=== PATIENT | male | born 1985 | race Caucasian/White ===

== ENCOUNTER 2020-11-09 19:51 | Emergency (ER) | payer OTHER, SELFPAY ==
--- NOTE | ~2020-11-09 | XR_ITS ---
EXAMINATION: XR chest 2V DATE: 11/09/2020 20:21 INDICATION: Chest tightness TECHNIQUE: PA and lateral views of the chest were obtained. COMPARISON: Chest radiograph dated 11/04/2015 FINDINGS: The lungs remain clear with no focal airspace opacities, pulmonary edema, pleural effusion or pneumot horax. The cardiomediastinal silhouette is normal. Visualized bones and soft tissues are unremarkable . IMPRESSION: 1. Normal chest radiograph. Reviewed, dictated and finalized at location A. IMPRESSION: 1. Normal chest radiograph.
--- NOTE | 2020-11-09 20:02 | ECG_ITS ---
Measurements Intervals [place] Rate: 86 P: 51 MA: 152 QRS: 24 QRSD: 88 T: 25 QT: 344 QTc: 412 Interpretive Statements SINUS RHYTHM NORMAL ECG Electronically Signed On 11-09-2020 21:12:06 CDT by Oscar Simpson D.O.
[2020-11-09 20:03] VITALS: BP 150/95; PULSE 89; RESP 20; TEMP 37.1; O2SAT 98
[2020-11-09 20:16] LABS: Basophils Absolute Auto 0.1 K/mm3 (0.0-0.1); Basophils Percent Auto 0.5 % (0.2-1.2); Eosinophils Absolute Auto 0.1 K/mm3 (0-0.3); Hematocrit 44.6 % (42.0-52.0); Immature Granulocyte Absolute 0.04 K/mm3 (0.00-0.031); Immature Granulocyte Percent A 0.4 % (0-0.5); Lymphocytes Absolute Auto 2.07 K/mm3 (0.9-3.2); Lymphocytes Percent Auto 19.7 % (18.3-44.2); Mean Corpuscular HGB Conc 33.6 g/dl (32-36); Mean Corpuscular Volume 86.1 fl (80-100); Mean Platelet Volume 9.3 fl (7.4-10.4); Monocytes Absolute Auto 0.6 K/mm3 (0.1-0.6); Monocytes Percent Auto 5.9 % (2.6-8.5); Neutrophils Absolute Auto 7.6 K/mm3 (1.3-6.7); Neutrophils Percent Auto 72.5 % (45.5-73.1); Platelet Count Result 336 k/mm3 (150-375); Red Blood Count 5.18 M/mm3 (4.6-6.20); Red Cell Distribution Width 12.7 % (11.5-14.5); White Blood Count 10.5 K/mm3 (4.5-10.0)
[2020-11-09 20:27] LABS: Anion Gap 11 mmol/L (8-16); Blood Urea Nitrogen 10 mg/dL (9-20); Calcium 9.5 mg/dL (8.4-10.2); Carbon Dioxide 24 mmol/L (22-30); Chloride 103 mmol/L (98-107); Estimated CRCL calculation 117 ml/min; Estimated Glomerular Filt Rate > 60; Glucose 105 mg/dL (75-110); INR 0.9; Partial Thromboplastin Time 29.6 SECONDS (22.3-36.8); Potassium 3.5 mmol/L (3.4-5.0); Prothrombin Time 12.9 Seconds (11.1-14.7); Sodium 138 mmol/L (137-145)
[2020-11-09 20:39] LABS: Troponin I < 0.012 ng/mL (0.000-0.034)
--- NOTE | 2020-11-09 22:44 | ED.CHESTPAIN ---
HPI - Chest Pain General Chief Complaint: Chest Pain Stated Complaint: anxiety attack Time Seen by Provider: 11/09/20 22:17 Source: patient Mode of arrival: ambulatory Limitations: no limitations History of Present Illness HPI narrative: 13-grhh-akx-year-old with complaints of intermittent palpitation on and off for past 1 or [address] home started having fast heart rate associated with some chest discomfort. She states that it could be anxiety but however he wanted to get it checked out. Patient states that while he was in the waiting room he had the symptoms however by the time he came back to the ED room he is feeling much better. Patient states that he is to drink lots of Mountain Dew which she quit 2 days ago and been supplementing with water and had 8 cups of coffee this afternoon. He also states that he has some stress going on in life however which is nothing unusual for him. He denies any fever or chills. No history of cough. MD complaint: chest discomfort Timing of current episode: episodic Pain radiation: none Relieving factors: nothing Exacerbating factors: nothing Related Data Allergies Allergy/AdvReac Type Severity Reaction Status Date / Time No Known Allergies Allergy Verified 11/04/15 08:43 Review of Systems Review of Systems: All systems reviewed & are unremarkable except as noted in HPI and below Constitutional: Constitutional: Reports no additional constitutional complaints ENT: Reports system reviewed and no additional complaints, except as documented Cardiovascular: Cardiovascular: Reports as per HPI Respiratory: Respiratory: Reports no additional respiratory complaints Gastrointestinal: Gastrointestinal: Reports no additional gastrointestinal complaints Musculoskeletal: Musculoskeletal: Reports no additional musculoskeletal complaints Neurologic: Reports system reviewed and no additional complaints, except as documented PMFSH Social History Social History Gender identity (if verbalized by the patient): Male Exam Narrative: Exam Narrative: GENERAL: Well-appearing, well-nourished, and in no acute distress. HEAD: Normocephalic, atraumatic. EYES: PERRLA and EOMI.. NECK: Supple. CHEST: Clear to auscultation. No respiratory distress. HEART: Regular rate and rhythm. No murmur heard. Normal peripheral pulses. ABDOMEN: Soft, nontender, nondistended, normal active bowel sounds. EXTREMITIES: Normal range of motion. No edema. SKIN: Warm, dry, no rash. NEURO: No focal deficits. Alert and oriented x3. PSYCH: Normal mood and affect. Course Course Emergency Course: Patient resting comfortably. With a heart rate of 75. I have reviewed his lab work and EKG and chest x-ray findings. His symptoms more suggestive of anxiety however since these are ongoing I recommended him to follow-up with his primary doctor consider Holter. He does feel comfortable going home Vital Signs Vital signs: Vital Signs Temperature 37.1 C 11/09/20 20:03 Pulse Rate 89 11/09/20 20:03 Respiratory Rate 20 11/09/20 20:03 Blood Pressure 150/95 H 11/09/20 20:03 Pulse Oximetry 98 11/09/20 20:03 Temperature 37.1 C 11/09/20 20:03 Pulse Rate 89 11/09/20 20:03 Respiratory Rate 20 11/09/20 20:03 Blood Pressure 150/95 H 11/09/20 20:03 Pulse Oximetry 98 11/09/20 20:03 MDM - Chest Pain Differential Diagnosis Differential diagnosis: Likely atypical chest pain and other (Anxiety) Lab Data Result diagrams: 11/09/20 20:08 11/09/20 20:08 Labs: Lab Results 11/09/20 11/09/20 11/09/20 Range/Units 20:08 20:08 20:08 WBC 10.5 H (4.5-10.0) K/mm3 RBC 5.18 (4.6-6.20) M/mm3 Hgb 15.0 (14.0-18.0) g/dL Hct 44.6 (42.0-52.0) % MCV 86.1 (80-100) fl MCH 29.0 (26-34) pg MCHC 33.6 (32-36) g/dl RDW 12.7 (11.5-14.5) % Plt Count 336 (150-375) k/mm3 MPV 9.3 (7.4-10.4)
[2020-11-09 23:06] VITALS: BP 101/56; PULSE 94; RESP 21; O2SAT 100
== END 2020-11-09 23:08 | disposition home or self-care (01) ==
PROVIDERS: Emergency Medicine; Emergency Provider Family Medicine
DX: R00.2 Palpitations (principal); R07.89 Other chest pain
CPT/HCPCS: 36415; 71046; 80048; 84484; 85025; 85610; 85730; 93005; 99284

== ENCOUNTER 2024-05-31 11:56 | Emergency (ER) | payer OTHER, SELFPAY ==
[2024-05-31 12:21] VITALS: BP 122/81; PULSE 65; RESP 18; TEMP 36.5; O2SAT 98
--- NOTE | 2024-05-31 13:00 | ED.URI ---
HPI - URI/Sore Throat General Chief Complaint: Upper Respiratory Infection Stated Complaint: Cough, Congestion Time Seen by Provider: 05/31/24 13:00 Source: patient, RN notes reviewed and old records reviewed Mode of arrival: ambulatory Limitations: no limitations History of Present Illness HPI Narrative: 38-year-old male presents to the [facility] with complaints of scratchy throat, headache, congestion for 3 days. Patient states his daughter tested positive for strep. Onset (ago): day(s) (3) Related Data Home Medications ?Medication ?Instructions ?Recorded ?Confirmed ?Last Taken ?Type No Home Medications 05/31/24 05/31/24 Unknown History Allergies Allergy/AdvReac Type Severity Reaction Status Date / Time No Known Allergies Allergy Verified 05/31/24 13:17 Review of Systems Review of Systems: All systems reviewed & are unremarkable except as noted in HPI and below Constitutional: Constitutional: Reports no additional constitutional complaints ENT: Reports as per HPI and Reports sore throat Cardiovascular: Cardiovascular: Reports no additional cardiovascular complaints, Denies chest pain and Denies dyspnea Respiratory: Respiratory: Reports as per HPI, Reports chest congestion, Reports cough and Denies dyspnea Musculoskeletal: Musculoskeletal: Reports no additional musculoskeletal complaints Integumentary/Breasts: Skin/Breast: Reports system reviewed and no additional complaints, except as docu PMFSH Social History Social History Gender identity (if verbalized by the patient): Male Comments At the time of my signature, I reviewed and agree with the nursing past medical, surgical, social, and family history. There is no relevant family history pertinent to the patient complaint. Exam Const: General: cooperative, healthy appearing, comfortable, no acute distress, well developed, alert and well nourished Nutritional Appearance: well nourished Orientation/consciousness: patient oriented x3 Limitations: no limitations HENMT: Head: normal to inspection Ears: hearing grossly normal bilaterally, external ears normal, TM's normal bilaterally, EAC's normal, mastoids normal and no periauricular adenopathy Face/Nose/Sinus: normal facial exam and face symmetric Face and sinus: normal facial exam and face symmetric Mouth: Yes Normal oral and palatal mucosa present, Yes lip normal, Yes tongue normal and Yes moist mucous membranes Throat: posterior oropharynx normal, uvula midline, postnasal drainage and no uvular edema Eyes: General: appearance normal, both eyes and all related structures Neck: Neck: normal visual inspection, full ROM, no lymphadenopathy and no meningeal signs Chest: Chest palpation & inspection: normal inspection of the chest Resp: Effort & Inspection: normal respiratory effort and able to speak in complete sentences Auscultation: clear to auscultation bilaterally, no crackles, no rales, no rhonchi and no wheezes Cardio: Rate: regular rate Skin: General skin exam: normal color and no rashes or lesions noted Neuro: General: patient oriented x3, gait normal, moves all extremities and no meningeal signs Cognition (Neuro): normal cognition Speech: normal speech Gait exam (Neuro): Normal gait present Extrem: General: normal to inspection, full ROM, capillary refill normal and normal gait Psych: Appearance: grossly normal and well kempt Mental Status: mental status grossly normal Speech and movement: Normal speech and movement present and Clear speech present Affect: normal affect Attitude: cooperative Course Course Level of Care: Express Care Visit Vital Signs Vital signs: Vital Signs Temperature 97.7 F 05/31/24 12:21 Pulse Rate 65 05/31/24 12:21 Respiratory Rate 18 05/31/24 12:21 Blood Pressure 122/81 05/31/24 12:21 Pulse Oximetry 98 05/31/24 12:21 Oxygen Delivery Room Air 05/31/24 12:21 Temperature 97.7 F 05/31/24 12:21 Pulse Rate 65 05/31/24 12:21 Respiratory Rate 18 05/31/24 12:21 Blood Pressure 122/81 05/31/24 12:21 Pulse Oximetry 98 05/31/24 12:21 Oxygen Delivery Room Air 05/31/24 12:21 Reviewed MDM - URI/Sore Throat MDM Narrative Medical decision making narrative: Patient sitting comfortably in exam room. Nontoxic stable. Patient presents with concerns for strep. Patient strep test negative. No acute findings other than postnasal drainage noted exam. Patient is appropriate for outpatient treatment and follow-up Discharge instructions reviewed with patient, as well as provided in writing per nursing staff. The instructions also include specific and strict return/GO TO THE ER as well as f/u information. All questions have been answered, and the patient deny any further questions with discharge and discharge plan. Some parts of this dictation were generated by voice recognition software and may contain typographical and/or grammatical inaccuracies. Differential Diagnosis Differential diagnosis: Likely upper respiratory infection, otitis media, sinusitis, viral infection and pharyngitis Lab Data Labs: Lab Results 05/31/24 Range/Units 13:25 POC Grp A Strep Screen Negative (Negative) Reviewed Critical Care Time Critical Care Time Critical Care Time: No Discharge Plan Discharge Clinical Impression: Post-nasal drainage Upper respiratory infection Qualifiers: URI type: unspecified viral URI Qualified Code(s): J06.9 - Acute upper respiratory infection, unspecified Patient Disposition: Home, Self-Care Condition: Stable Instructions: Antibiotic Form, Upper Respiratory Infection (DC), Postnasal Drip (DC) Additional Instructions: Your rapid strep swab was negative today at [facility]. A throat culture will be sent to the laboratory for further testing. If the test is positive, you will receive a phone call within 48 hours and an appropriate antibiotic will be initiated at that time. Your symptoms are likely due to a viral illness, which is not treated with antibiotics. Typically viral infections last 7-10 days, can linger for couple of weeks. It is very important to treat your symptoms. Drink plenty of water, Gatorade, Pedialyte, ice pops or Jell-O. -Alternate Tylenol and Motrin per package directions for fever or pain. You can alternate every 4 hours -Antihistamine medication such as Benadryl at night and Zyrtec/Claritin/Brandy during the day can help improve symptoms. -doing daily nasal irrigations can help relieve pressure your sinuses. Things like a Neti pot -Use Flonase twice a day for 5 days then daily to help reduce the inflammation and dry up your sinuses. -You can also use Mucinex. Be sure to drink plenty of water with this medication at least 8 ounces with every dose and it is important to drink 8 to 10 glasses of water per day. Water is a natural decongestant -Eat and drink things that are easy to swallow, like tea or soup, or popsicles. -Oral rinses such as: Salt water gargles and/or may use topical anesthetic (eg. Chloraseptic spray) or lozenges to relieve dryness or throat pain). -Frequent hand washing or hand check processing clerk is one of the best ways to prevent spread of infection. -Using a vaporizer or humidifier at night will also help thin secretions and help with coughing up phlegm. -Follow up with primary care provider in 7-10 days if condition is not improving - For new or worsening symptoms go directly to the nearest ER Patient Language: Russian Prescriptions: No Action No Home Medications Follow-up/Referrals: UNKNOWN,DOCTOR [Primary Care Provider] - Stand Alone Forms: Work/School Release IP Time of Disposition: 13:26
[2024-05-31 13:27] LABS: EDSTREPNEGPOS1 Negative (Negative)
== END 2024-05-31 13:35 | disposition home or self-care (01) ==
PROVIDERS: Emergency Provider Nurse Practitioner
DX: R09.82 Postnasal drip (principal); J06.9 Acute upper respiratory infection, unspecified
CPT/HCPCS: 87081; 87880; 99213; G0463

== ENCOUNTER 2024-11-11 17:13 | Emergency (ER) | payer BC, SELFPAY ==
[2024-11-11] VITALS (7 sets, daily range): BP systolic 124–143; BP diastolic 89–98; PULSE 88–97; RESP 16–26; TEMP 36.6; O2SAT 96–98
--- NOTE | ~2024-11-11 | CT_ITS ---
CTA brain carotid Ordering provider: Giacomo Cavazos MD History: . dizzy, floaters . Comparison: November 04, 2015 Technique: CT angiogram head and neck was performed following timed intravenous injection of contrast . Thin slice axial images and reformatted coronal images were obtained. Three dimensional reformatted images of the brain were also obtained using a [employer] workstation. Radiation reduction technique ut ilized. The dose-length product was 1863.08 mGy-cm. 100 mL Omnipaque 350 was given IV. FINDINGS: HEAD: --ANTERIOR AND MIDDLE CEREBRAL ARTERIES AND BRANCHES: Normal caliber and contour. --INTERNAL CAROTID ARTERIES: Normal caliber and contour. --BASILAR ARTERY AND BRANCHES: Normal caliber and contour. No atheromatous disease. --POSTERIOR CEREBRAL ARTERIES: Normal caliber and contour --POSTERIOR COMMUNICATING ARTERIES: Normal --ANEURYSM: None visualized. --BRAIN: Normal. --BONES AND SUPERFICIAL SOFT TISSUES: Normal. --PARANASAL SINUSES AND MASTOIDS: Well aerated. NECK: --RIGHT CERVICAL CAROTID SYSTEM: Normal caliber and contour. Percent stenosis per NASCET criteria is 0%. No carotid dissection. Otherwise, no significant atheromatous disease or stenosis of the cervical carotid system. --LEFT CERVICAL CAROTID SYSTEM: Normal caliber and contour. Percent stenosis per NASCET criteria is 0%. No carotid dissection. Otherwise, no significant atheromatous disease or stenosis of the cervical carotid system. --VERTEBRAL ARTERIES: Direct origin of the left from the aorta. Otherwise, Normal caliber and contour . --VISUALIZED AORTIC ARCH AND BRANCHING VESSELS: Normal caliber and contour. No significant atheromato us disease. --SOFT TISSUES: Normal. --CERVICAL SPINE: Normal. IMPRESSION: 1. Normal CTA head and neck. Percent stenosis per NASCET criteria is 0%. Reviewed, dictated and finalized at location A.
--- NOTE | ~2024-11-11 | XR_ITS ---
EXAMINATION: XR chest 2V Exam Date/Time: 11/11/2024 17:55 CDT HISTORY: chest pain Comparison: 11/09/2020. RESULT: Lines, tubes, and devices: None. Lungs and pleura: No focal consolidation, pleural effusion, or pneumothorax. Low lung volumes with c rowding. Cardiomediastinal silhouette: Stable. Other: No acute osseous or upper abdominal finding. IMPRESSION: No acute cardiopulmonary process. Reviewed, dictated and finalized at location K.
--- OUTSIDE RECORDS SUMMARY | 2024-11-11 17:15 | XMS_ITS | Referral Summary ---
Author Organization [facility] Address [address] [place] [id number] Care Team Providers Care Round Cutter Operator Name Role Phone Dayan Ordaz NP Primary Care Provider [phone] Tori Sweet STEAM GENERATING POWERPLANT MECHANIC Unavailable [phone] Allergies No known active allergies Medications clindamycin (CLEOCIN T) 1 % lotion 03/15/2021 Active ketoconazole (NIZORAL) 2 % shampoo 03/15/2021 Active Lialda 1.2 gram EC tablet 05/30/2021 Active budesonide EC (ENTOCORT EC) 3 mg 24 hr capsule Take 3 capsules (9 mg total) by mouth every morning for 14 days, THEN 2 capsules (6 mg total) every morning for 14 days, THEN 1 capsule (3 mg total) every morning for 14 days. 84 capsule 07/22/2021 Active Active Problems Problem Noted Date Diagnosed Date Ileitis, 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 Hx of BRBPR 2 years ago s/p colonoscopy which only revealed internal hemorrhoids. Asymptomatic otherwise, and incidentally noted to have TI thickening on CT 12/2020 which was done for testicular pain to rule out underlying mass. Therefore saw [facility] GI physician and underwent C-scope 03/17/2021 TI was intubated for 5 cm and terminal ileitis with ulcerations c/w CD seen and biopsied, rest of colon normal not biopsied, mild hemorrhoids. Path with severe active ileitis with erosion, no comment on chronicity. Started on Lialda 2.4 gm daily. Notably, was taking about 3 gm of Ibuprofen daily for years for back pain. He has stopped that since being told he may have Crohn's disease after the colonoscopy. About a week ago he developed transient R sided pablo-umbilical pain that resolved spontaneously, CT 06/07/2021 with thickening and edema of the terminal ileum seen suggesting inflammatory bowel disease such as Crohn's disease. Appearance is similar in comparison to CT-abdomen/pelvis of 12/25/2020. CBC/CMP/CRP 06/2021 normal. -ve ANCA. Based on above, he likely has mildly active terminal ileal Crohn's disease given persistent TI thickening on recent CT despite stopping NSAIDs. Assessment & Plan (06/15/2021 1:23 PM ARCHITECTURAL ENGINEER): - Labs today including CBC, CMP, CRP, ESR, iron studies, vitamin D/B12 and pre-biologic labs - Stop 5-ASA - Continue to avoid NSAIDs completely - Will schedule MRE, and consider starting Budesonide (Entocort) 9 mg daily based on results, with follow up ileocolonoscopy + biopsies in a few months - RTC in 3 months Social History Tobacco Use Types Packs/Day Years Used Date Smoking Tobacco: Former Cigarettes Q uit: 06/15/2018 Smokeless Tobacco: Never Personal Safety Answer Date Recorded Getting School Help Needed Not on file 08/05 Sex and Gender Information Value Date Recorded Sex Assigned at Not on file Legal Sex Male 1:57 PM CDT Gender Identity Male 06/15/2021 7:44 AM ARCHITECTURAL ENGINEER Sexual Orientation Straight 06/15/2021 7: 44 AM ARCHITECTURAL ENGINEER Last Filed Vital Signs Vital Sign Reading Time Taken Comments Blood Pressure 135/85 06/15/2021 9:44 AM ARCHITECTURAL ENGINEER Pulse 79 06/15/2021 9:44 AM ARCHITECTURAL ENGINEER Temperature 36.7 C (98.1 F) 06/15/2021 9:44 AM ARCHITECTURAL ENGINEER Respiratory Rate - - Oxygen Saturation - - Inhaled Oxygen Concentration - - Weight 93.1 kg (205 lb 3.2 oz) 06/15/2021 9:44 A M ARCHITECTURAL ENGINEER Height 175.3 cm (5' 9) 06/15/2021 9:44 AM ARCHITECTURAL ENGINEER Body Mass Index 30.3 06/15/2021 9:44 AM ARCHITECTURAL ENGINEER Plan of Treatment Not on file Insurance BLUE ACC CHOICE OOS Care Teams Round Cutter Operator Relationship Specialty [place] [address] [place] [address] PCP - General Nurse Practitioner 03/29/21 [place] [address] [address], [address] [address] Family Medicine 09/30/24
--- OUTSIDE RECORDS SUMMARY | 2024-11-11 17:15 | XMS_ITS | Clinical Summary ---
Author Organization [facility] Address [address] [place] [address] Care Team Providers Care Collateral Clerk Name Role Phone Dayan Ordaz NP Primary Care Provider [phone] Tori Sweet APPLICATIONS SUPPORT ENGINEER Unavailable [phone] Allergies No known active allergies Medications clindamycin [...] to rule out underlying mass. Therefore saw [facility] GI physician and underwent C-scope 03/17/2021 [...] NSAIDs. Assessment & Plan (06/15/2021 1:23 PM ANGLE BENDER): - Labs today including CBC, CMP, CRP, ESR, iron studies, vitamin D/B12 and pre-biologic labs - Stop 5-ASA - Continue to avoid NSAIDs completely - Will schedule MRE, and consider starting Budesonide (Entocort) 9 mg daily based on results, with follow up ileocolonoscopy + biopsies in a few months - RTC in 3 months Family History Medical History Relation Name Comments Colon cancer Father Ulcerative colitis Father Relation Name Status Comments Father Social History Tobacco Use Types Packs/Day Years Used Date Smoking Tobacco: Former Cigarettes Q uit: 06/15/2018 Smokeless Tobacco: Never Personal Safety Answer Date Recorded Getting School Help Needed Not on file 08/05 Sex and Gender Information Value Date Recorded Sex Assigned at Not on file Legal Sex Male 1:57 PM CDT Gender Identity Male 06/15/2021 7:44 AM ANGLE BENDER Sexual Orientation Straight 06/15/2021 7: 44 AM ANGLE BENDER Obstetrics History Last Filed Vital Signs Vital Sign Reading Time Taken Comments Blood Pressure 135/85 06/15/2021 9:44 AM ANGLE BENDER Pulse 79 06/15/2021 9:44 AM ANGLE BENDER Temperature 36.7 C (98.1 F) 06/15/2021 9:44 AM ANGLE BENDER Respiratory Rate - - Oxygen Saturation - - Inhaled Oxygen Concentration - - Weight 93.1 kg (205 lb 3.2 oz) 06/15/2021 9:44 A M ANGLE BENDER Height 175.3 cm (5' 9) 06/15/2021 9:44 AM ANGLE BENDER Body Mass Index 30.3 06/15/2021 9:44 AM ANGLE BENDER Plan of Treatment Not on file Insurance BLUE ACC CHOICE OOS Care Teams Collateral Clerk Relationship Specialty [place] [address] [place] [address] PCP - General Nurse Practitioner 03/29/21 [place] [address] [address], [address] [address] Family Medicine 09/30/24
--- OUTSIDE RECORDS SUMMARY | 2024-11-11 17:15 | XMS_ITS | Continuity of Care Document ---
Author Organization [facility] Address [address] [facility] [address] [place] [address] Phone Care Team Providers Care Service Member Name Role Phone Watson OD, Mani Unavailable Unavailable Advance Directives Directive Yes / No Effective Date File Name No Information Encounters Encounter Description Practice Location Reason(s) For Visit Diagnoses Date Provider Providers Copied on Encounter [facility], [address], [place], [place], [id number], [place] tel:[phone] [facility] No Information 6-200 1 Watson OD Mani. [address] , [address], [place], [address], [place]. tel:[phone] Family History Family Member Type Diagnosis Age At Onset No Information Payers Payer name Insurance type Covered alliance party ID Authoriza tion(s) No Information Social History [...]
--- NOTE | 2024-11-11 17:31 | ECG_ITS ---
Test Date: 2024-11-11 17:52:08 Measurements Intervals [place] Rate: 84 P: 59 [place]: 151 QRS: 27 QRSD: 85 T: 38 QT: 340 QTc: 404 Interpretive Statements SINUS RHYTHM NORMAL ECG No previous ECG available for comparison Electronically Signed On 11-11-2024 18:43:42 CDT by Oscar Simpson D.O.
--- NOTE | 2024-11-11 17:53 | ED_ITS ---
HPI - Anxiety General Chief Complaint: Anxiety <Kenia Torres BARREL ASSEMBLER - Last Filed: 11/11/24 17:56> Stated Complaint: anxiety, head pressure <Kenia Torres BARREL ASSEMBLER - Last Filed: 11/11/24 17:56> Time Seen by Provider: 11/11/24 17:40 <Kenia Torres BARREL ASSEMBLER - Last Filed: 11/11/24 17:56> Focused HPI: Patient is a 39-year-old male who presents to the ER with multiple medical complaints. He reports he has a history of anxiety attacks and has been experiencing chest pain and left shoulder pain since this morning. Patient also endorses a headache around his frontal lobe and reports he went to his primary care provider on Monday, 3 days ago for evaluation. They sent him home with Flonase and advised him that if his symptoms continue he may need a CT scan of his head. Today patient endorses decreased p.o. intake, dizziness, fatigue, and weakness. He reports he was in bed all weekend. Patient reports he receives most medical care at [facility]. Denies any back pain, shortness or breath, or recent fevers. GENERAL: Well-appearing, well-nourished, and in no acute distress. HEAD: Normocephalic, atraumatic. CHEST: Clear to auscultation. ?No respiratory distress. HEART: Regular rate and rhythm.? NEURO: ?Alert and oriented x3. Patient screened in triage and initial orders placed.? ?Additional care and disposition to be based upon?diagnostic testing and treatment. <Kenia Torres BARREL ASSEMBLER - Last Filed: 11/11/24 17:56> Focused HPI: Patient is a 39-year-old male who presents to the ER with multiple medical complaints. He reports he has a history of anxiety attacks and has been experiencing chest pain and left shoulder pain since this morning. Patient also endorses a headache around his frontal lobe and reports he went to his primary care provider on Monday, 3 days ago for evaluation. They sent him home with Flonase and advised him that if his symptoms continue he may need a CTA scan of his head & neck. Today patient endorses decreased p.o. intake, dizziness, fatigue, and weakness. He reports he was in bed all weekend. Patient reports he receives most medical care at [facility]. Denies any back pain, shortness or breath, or recent fevers. GENERAL: Well-appearing, well-nourished, and in no acute distress. HEAD: Normocephalic, atraumatic. CHEST: Clear to auscultation. ?No respiratory distress. HEART: Regular rate and rhythm.? NEURO: ?Alert and oriented x3. Patient screened in triage and initial orders placed.? ?Additional care and disposition to be based upon?diagnostic testing and treatment. Agree with triage assessment. Patient does admit that he has been under lot of stress but denies any suicidal homicidal ideations. Admits that he does have a therapist that he follows up with regularly. <Giacomo Cavazos MD - Last Filed: 11/11/24 21:10> Related Data Home Medications: Home Medications ?Medication ?Instructions ?Recorded ?Confirmed ?Last Taken ?Type No Home Medications 05/31/24 05/31/24 Unknown History <Kenia Torres APRN - Last Filed: 11/11/24 17:56> Allergies/Adverse Reactions: Allergies Allergy/AdvReac Type Severity Reaction Status Date / Time No Known Allergies Allergy Verified 11/11/24 17:14 <Kenia Torres APRN - Last Filed: 11/11/24 17:56> Review of Systems 2 Review of Systems: All systems are reviewed and are negative unless stated otherwise in the HPI. <Giacomo Cavazos MD - Last Filed: 11/11/24 21:10> FOR[facility]LY [facility], [facility] Social History Social History: Social History Substance use type: does not use Gender identity (if verbalized by the patient): Male <Kenia Torres APRN - Last Filed: 11/11/24 17:56> Exam 2 Narrative: General: Alert, awake, afebrile, in no acute distress. HEENT: PERRL, no rhinorrhea, no post nasal drip, oropharynx clear. Neck: Trachea midline, no JVD, no lymphadenopathy. Cardiovascular: Regular rate and rhythm, no murmurs, rubs or gallops, no peripheral edema. Respiratory: Clear to auscultation bilaterally, no tachypnea, no wheezing, no rhonchi, no rubs, no respiratory distress. Abdomen: Soft, nontender, nondistended, no rebound, no guarding, no peritoneal signs. Musculoskeletal: No joint swelling or deformity, normal muscle tone. Skin: No rashes or petechia, no signs of infection. Psychiatric: Alert and oriented, normal behavior and judgment for situation. Neurological: Alert and oriented to person, place, and time. Follows all commands. No focal deficits, speech is clear and fluent. <Giacomo Cavazos MD - Last Filed: 11/11/24 21:10> Course Vital Signs Vital signs: Vital Signs Temperature 98 F 11/11/24 17:25 Pulse Rate 97 11/11/24 17:25 Respiratory Rate 18 11/11/24 17:25 Blood Pressure 136/89 11/11/24 17:25 Pulse Oximetry 98 11/11/24 17:25 Temperature 98 F 11/11/24 17:25 Pulse Rate 89 11/11/24 20:00 Respiratory Rate 16 11/11/24 20:00 Blood Pressure 124/94 H 11/11/24 20:00 Pulse Oximetry 96 11/11/24 20:00 <Kenia Torres APRN - Last Filed: 11/11/24 17:56> Vital Signs Temperature 98 F 11/11/24 17:25 Pulse Rate 97 11/11/24 17:25 Respiratory Rate 18 11/11/24 17:25 Blood Pressure 136/89 11/11/24 17:25 Pulse Oximetry 98 11/11/24 17:25 Temperature 98 F 11/11/24 17:25 Pulse Rate 89 11/11/24 20:00 Respiratory Rate 16 11/11/24 20:00 Blood Pressure 124/94 H 11/11/24 20:00 Pulse Oximetry 96 11/11/24 20:00 <Giacomo Cavazos MD - Last Filed: 11/11/24 21:10> MDM - Anxiety MDM Narrative Medical decision making narrative: The patient was evaluated by myself in the emergency department. History is obtained from patient who is an independent historian and physical exam was performed. External medical records were reviewed at this time. IV was established and pertinent tests were ordered. EKG was obtained which revealed sinus rhythm rate of 84 beats per min. No ST changes, T wave inversions or evidence of acute ischemia. EKG was independently interpreted by me and is currently pending official cardiology read. Laboratory results obtained revealing no acute process. Imaging studies obtained included CXR which was independently interpreted by me revealing no acute process, which is pending final radiology interpretation. CT angio head and neck was ordered at this time per patient's request and independently interpreted by me no acute process. Patient was provided with printout of his CT report. Differential diagnosis considerations include anxiety, depression, acute stress reaction, arrhythmia, near syncopal episode, peripheral vertigo. Comorbidities impacting this visit include none. I have evaluated and discussed social determinants of health with the patient that could potentially impact subsequent diagnosis and treatment plans. On repeat assessment of the patient, reevaluation revealed that the patient is doing well and is in no acute distress. Patient symptoms have improved since he arrived to our emergency department. Repeat vital signs were all reviewed and noted to be stable. Differential diagnosis and treatment plan were discussed with the patient at bedside. Patient agrees with discussion and after shared medical decision making agrees with discharge. All questions were answered to the patient's satisfaction. Patient will follow up with his PCP in 3-5 days. Patient was also provided with an ENT referral instructed to call to set up a follow-up appointment. Patient was provided with strict return precautions and instructed to return to the emergency department if any new or worsening symptoms develop. The patient was discharged in stable condition. <Giacomo Cavazos MD - Last Filed: 11/11/24 21:10> Lab Data Result diagrams: 11/11/24 17:47 11/11/24 17:47 <Kenia Torres APRN - Last Filed: 11/11/24 17:56> Labs: Lab Results 11/11/24 11/11/24 Range/Units 17:47 19:38 WBC 8.6 (4.5-10.0) K/mm3 RBC 5.23 (4.6-6.20) M/mm3 Hgb 14.8 (14.0-18.0) g/dL Hct 45.9 (42.0-52.0) % MCV 87.8 (80-100) fl MCH 28.3 (26-34) pg MCHC 32.2 (32-36) g/dl RDW 12.7 (11.5-14.5) % Plt Count 378 H (150-375) k/mm3 MPV 9.0 (7.4-10.4) fl Immature Gran % (Auto) 0.5 (0-0.5) % Neut % (Auto) 64.1 (45.5-73.1) % Lymph % (Auto) 26.4 (18.3-44.2) % [place] % (Auto) 7.3 (2.6-8.5) % Eos % (Auto) 1.0 (0-4.4) % Baso % (Auto) 0.7 (0.2-1.2) % Lymph # (Auto) 2.27 (0.9-3.2) K/mm3 [place] # (Auto) 0.6 (0.1-0.6) K/mm3 Eos # (Auto) 0.1 (0-0.3) K/mm3 Baso # (Auto) 0.1 (0.0-0.1) K/mm3 Abs Immat Gran (auto) 0.04 H (0.00-0.031) K/mm3 Absolute Neuts (auto) 5.5 (1.3-6.7) K/mm3 Absolute Nucleated RBC 0.000 (0.0-0.012) K/mm3 Nucleated RBC % 0.0 (0.0-0.2) % PT 13.4 (11.1-14.7) Seconds INR 1.0 APTT 29.7 (22.3-36.8) Seconds Sodium 138 (137-145) mmol/L Potassium 3.7 (3.4-5.0) mmol/L Chloride 104 (98-107) mmol/L Carbon Dioxide 25 (22-30) mmol/L Anion Gap 9 (4-12) mmol/L BUN 12 (9-20) mg/dL Creatinine 0.95 (0.7-1.3) mg/dL Estim Creat Clear Calc 107 ml/min Estimated GFR > 60 (59 - ) Glucose 88 (65-110) mg/dL Calcium 9.4 (8.4-10.2) mg/dL Total Bilirubin 0.4 (0.2-1.3) mg/dL AST 28 (17-59) U/L ALT 25 (6-50) U/L Alkaline Phosphatase 89 (38-126) U/L Troponin I < 0.012 (0.000-0.034) ng/mL Total Protein 7.8 (6.3-8.2) g/dL Albumin 4.6 (3.5-5.1) g/dL Lipase 183 (23-300) U/L Urine Color Yellow (Yellow) Urine Appearance Clear (Clear) Urine pH 6.5 (5.0-9.0) Ur Specific [place] 1.003 (1.001-1.035) Urine Protein Negative (Negative) mg/dL Urine Glucose (UA) Negative (Negative) mg/dL Urine Ketones Negative (Negative) mg/dL Ur Blood (Man) Negative (Negative) Urine Nitrate Negative (Negative) Urine Bilirubin Negative (Negative) Urine Urobilinogen 0.2 (<2.0) mg/dL Leukocyte Esterase Rfl Negative (Negative) AMISH/UL <Kenia Torres, BARREL ASSEMBLER - Last Filed: 11/11/24 17:56> Lab Results 11/11/24 11/11/24 Range/Units 17:47 19:38 WBC 8.6 (4.5-10.0) K/mm3 RBC 5.23 (4.6-6.20) M/mm3 Hgb 14.8 (14.0-18.0) g/dL Hct 45.9 (42.0-52.0) % MCV 87.8 (80-100) fl MCH 28.3 (26-34) pg MCHC 32.2 (32-36) g/dl RDW 12.7 (11.5-14.5) % Plt Count 378 H (150-375) k/mm3 MPV 9.0 (7.4-10.4) fl Immature Gran % (Auto) 0.5 (0-0.5) % Neut % (Auto) 64.1 (45.5-73.1) % Lymph % (Auto) 26.4 (18.3-44.2) % [place] % (Auto) 7.3 (2.6-8.5) % Eos % (Auto) 1.0 (0-4.4) % Baso % (Auto) 0.7 (0.2-1.2) % Lymph # (Auto) 2.27 (0.9-3.2) K/mm3 [place] # (Auto) 0.6 (0.1-0.6) K/mm3 Eos # (Auto) 0.1 (0-0.3) K/mm3 Baso # (Auto) 0.1 (0.0-0.1) K/mm3 Abs Immat Gran (auto) 0.04 H (0.00-0.031) K/mm3 Absolute Neuts (auto) 5.5 (1.3-6.7) K/mm3 Absolute Nucleated RBC 0.000 (0.0-0.012) K/mm3 Nucleated RBC % 0.0 (0.0-0.2) % PT 13.4 (11.1-14.7) Seconds INR 1.0 APTT 29.7 (22.3-36.8) Seconds Sodium 138 (137-145) mmol/L Potassium 3.7 (3.4-5.0) mmol/L Chloride 104 (98-107) mmol/L Carbon Dioxide 25 (22-30) mmol/L Anion Gap 9 (4-12) mmol/L BUN 12 (9-20) mg/dL Creatinine 0.95 (0.7-1.3) mg/dL Estim Creat Clear Calc 107 ml/min Estimated GFR > 60 (59 - ) Glucose 88 (65-110) mg/dL Calcium 9.4 (8.4-10.2) mg/dL Total Bilirubin 0.4 (0.2-1.3) mg/dL AST 28 (17-59) U/L ALT 25 (6-50) U/L Alkaline Phosphatase 89 (38-126) U/L Troponin I < 0.012 (0.000-0.034) ng/mL Total Protein 7.8 (6.3-8.2) g/dL Albumin 4.6 (3.5-5.1) g/dL Lipase 183 (23-300) U/L Urine Color Yellow (Yellow) Urine Appearance Clear (Clear) Urine pH 6.5 (5.0-9.0) Ur Specific [place] 1.003 (1.001-1.035) Urine Protein Negative (Negative) mg/dL Urine Glucose (UA) Negative (Negative) mg/dL Urine Ketones Negative (Negative) mg/dL Ur Blood (Man) Negative (Negative) Urine Nitrate Negative (Negative) Urine Bilirubin Negative (Negative) Urine Urobilinogen 0.2 (<2.0) mg/dL Leukocyte Esterase Rfl Negative (Negative) AMISH/UL <Giacomo Cavazos MD - Last Filed: 11/11/24 21:10> Discharge Plan Discharge Clinical Impression: Acute anxiety, Vertigo <Kenia Torres APRN - Last Filed: 11/11/24 17:56> Patient Disposition: Home <Kenia Torres APRN - Last Filed: 11/11/24 17:56> Condition: Improved <Kenia Torres APRN - Last Filed: 11/11/24 17:56> Instructions: Antibiotic Form, Depression (ED), Benign Paroxysmal Positional Vertigo (DC) <Kenia Torres APRN - Last Filed: 11/11/24 17:56> Additional Instructions: Please follow-up with your primary care physician within the next 3-5 days. You also provided with an ENT referral instructed to call to set up a follow-up appointment. Return to the ED if any new or worsening symptoms develop. <Kenia Torres APRN - Last Filed: 11/11/24 17:56> Patient Language: Somali <Kenia Torres APRN - Last Filed: 11/11/24 17:56> Prescriptions: No Action No Home Medications <Kenia Torres APRN - Last Filed: 11/11/24 17:56> Follow-up/Referrals: Kee,Tori Carroll APRN [Primary Care Provider] - 3 Days Teddy Patino MD [Physician] - 3 Days <Kenia Torres APRN - Last Filed: 11/11/24 17:56> Time of Disposition: 21:09 <Kenia Torres APRN - Last Filed: 11/11/24 17:56> 21:09 <Giacomo Cavazos MD - Last Filed: 11/11/24 21:10>
[2024-11-11 17:58] LABS: Basophils Absolute Auto 0.1 K/mm3 (0.0-0.1); Basophils Percent Auto 0.7 % (0.2-1.2); Eosinophils Absolute Auto 0.1 K/mm3 (0-0.3); Hematocrit 45.9 % (42.0-52.0); Hemoglobin 14.8 g/dL (14.0-18.0); Immature Granulocyte Absolute 0.04 K/mm3 (0.00-0.031); Immature Granulocyte Percent A 0.5 % (0-0.5); Lymphocytes Absolute Auto 2.27 K/mm3 (0.9-3.2); Lymphocytes Percent Auto 26.4 % (18.3-44.2); Mean Corpuscular HGB Conc 32.2 g/dl (32-36); Mean Corpuscular Hemoglobin 28.3 pg (26-34); Mean Corpuscular Volume 87.8 fl (80-100); Monocytes Absolute Auto 0.6 K/mm3 (0.1-0.6); Monocytes Percent Auto 7.3 % (2.6-8.5); Neutrophils Absolute Auto 5.5 K/mm3 (1.3-6.7); Neutrophils Percent Auto 64.1 % (45.5-73.1); Platelet Count Result 378 k/mm3 (150-375); Red Blood Count 5.23 M/mm3 (4.6-6.20); Red Cell Distribution Width 12.7 % (11.5-14.5); White Blood Count 8.6 K/mm3 (4.5-10.0)
[2024-11-11 18:10] LABS: Prothrombin Time 13.4 Seconds (11.1-14.7)
[2024-11-11 18:11] LABS: Partial Thromboplastin Time 29.7 Seconds (22.3-36.8)
[2024-11-11 18:12] LABS: Alanine Aminotransferase 25 U/L (6-50); Albumin Level 4.6 g/dL (3.5-5.1); Alkaline Phosphatase 89 U/L (38-126); Anion Gap 9 mmol/L (4-12); Aspartate Amino Transferase 28 U/L (17-59); Bilirubin,Total 0.4 mg/dL (0.2-1.3); Blood Urea Nitrogen 12 mg/dL (9-20); Calcium 9.4 mg/dL (8.4-10.2); Carbon Dioxide 25 mmol/L (22-30); Chloride 104 mmol/L (98-107); Estimated CRCL calculation 107 ml/min; Estimated Glomerular Filt Rate > 60; Glucose 88 mg/dL (65-110); Lipase 183 U/L (23-300); Potassium 3.7 mmol/L (3.4-5.0); Sodium 138 mmol/L (137-145); Total Protein 7.8 g/dL (6.3-8.2)
[2024-11-11 18:24] LABS: Troponin I < 0.012 ng/mL (0.000-0.034)
[2024-11-11] MEDS: ASPIRIN 81 MG CHEWABLE TABLET 324 MG PO (18:59)
--- OUTSIDE RECORDS SUMMARY | 2024-11-11 19:40 | XMS_ITS | Referral Summary ---
Author Organization [facility] Address [address] [place] [address] Care Team Providers Care Electronic Train Control Technician Name Role Phone Dayan Ordaz NP Primary Care Provider [phone] Tori Sweet CONCRETE LABORER Unavailable [phone] Allergies No known active allergies Medications clindamycin [...] to rule out underlying mass. Therefore saw [facility] GI physician and underwent C-scope 03/17/2021 TI [...] NSAIDs. Assessment & Plan (06/15/2021 1:23 PM THERAPIST PHYSICAL): - Labs today including CBC, CMP, CRP, [...] CDT Gender Identity Male 06/15/2021 7:44 AM THERAPIST PHYSICAL Sexual Orientation Straight 06/15/2021 7: 44 AM THERAPIST PHYSICAL Last Filed Vital Signs Vital Sign Reading Time Taken Comments Blood Pressure 135/85 06/15/2021 9:44 AM THERAPIST PHYSICAL Pulse 79 06/15/2021 9:44 AM THERAPIST PHYSICAL Temperature 36.7 C (98.1 F) 06/15/2021 9:44 AM THERAPIST PHYSICAL Respiratory Rate - - Oxygen Saturation - - Inhaled Oxygen Concentration - - Weight 93.1 kg (205 lb 3.2 oz) 06/15/2021 9:44 A M THERAPIST PHYSICAL Height 175.3 cm (5' 9) 06/15/2021 9:44 AM THERAPIST PHYSICAL Body Mass Index 30.3 06/15/2021 9:44 AM THERAPIST PHYSICAL Plan of Treatment Not on file Insurance BLUE ACC CHOICE OOS Member Subscriber Plan / Payer (Ef fective 2024-Present) Name:Guille Walllaura Langston III Member ID:[id number] Relation to Subscriber:Self Name:Saman Wall Kian LECHUGA Subscriber ID:[id number] Payer ID:[id number] (NAIC) Type:[facility] Address: [facility] [id number] [place] [address] Care Teams Electronic Train Control Technician Relationship Specialty [place] [address] [place] [address] PCP - General Nurse Practitioner 03/29/21 [place] [address] Sat[address] Orozco, [address] [address] Family Medicine 09/30/24
--- OUTSIDE RECORDS SUMMARY | 2024-11-11 19:40 | XMS_ITS | Continuity of Care Document ---
Author Organization [facility] Address [address] [facility] [address] [place] [address] Phone Care Team Providers Care First Aid Nurse Name Role Phone Watson OD, Mani Unavailable Unavailable Advance Directives Directive Yes / No Effective Date File Name No Information Encounters Encounter Description Practice Location Reason(s) For Visit Diagnoses Date Provider Providers Copied on Encounter [facility], [address], [place], [place], [id number], [place] tel:[phone] [facility] No Information 6-200 1 Watson OD Mani. [address] , [address], [place], [address], [place]. tel:[phone] Family History Family Member Type Diagnosis Age [...]
--- OUTSIDE RECORDS SUMMARY | 2024-11-11 19:40 | XMS_ITS | Clinical Summary ---
Author Organization [facility] Address [address] [place] [id number] Care Team Providers Care Hotel Associate Name Role Phone Dayan Ordaz NP Primary Care Provider [phone] Tori Sweet SNAKE CHARMER Unavailable [phone] Allergies No known active allergies Medications clindamycin [...] to rule out underlying mass. Therefore saw [facility] GI physician and underwent C-scope 03/17/2021 [...] NSAIDs. Assessment & Plan (06/15/2021 1:23 PM LANGUAGE SPECIALIST): - Labs today including CBC, CMP, CRP, [...] CDT Gender Identity Male 06/15/2021 7:44 AM LANGUAGE SPECIALIST Sexual Orientation Straight 06/15/2021 7: 44 AM LANGUAGE SPECIALIST Obstetrics History Last Filed Vital Signs Vital Sign Reading Time Taken Comments Blood Pressure 135/85 06/15/2021 9:44 AM LANGUAGE SPECIALIST Pulse 79 06/15/2021 9:44 AM LANGUAGE SPECIALIST Temperature 36.7 C (98.1 F) 06/15/2021 9:44 AM LANGUAGE SPECIALIST Respiratory Rate - - Oxygen Saturation - - Inhaled Oxygen Concentration - - Weight 93.1 kg (205 lb 3.2 oz) 06/15/2021 9:44 A M LANGUAGE SPECIALIST Height 175.3 cm (5' 9) 06/15/2021 9:44 AM LANGUAGE SPECIALIST Body Mass Index 30.3 06/15/2021 9:44 AM LANGUAGE SPECIALIST Plan of Treatment Not on file Insurance BLUE ACC CHOICE OOS Care Teams Hotel Associate Relationship Specialty [place] [address] [place] [address] PCP - General Nurse Practitioner 03/29/21 [place] [address] [address] Orozco, [address] [address] Family Medicine 09/30/24
[2024-11-11 20:03] LABS: Add Urine Microscopic? NO; Appearance Urine Clear (Clear); Bilirubin Urine Negative (Negative); Blood Urine Negative (Negative); Color Urine Yellow (Yellow); Glucose Urine UA Negative (Negative); Ketones Urine Negative (Negative); Leukocyte Esterase Ur Negative LEU/UL (Negative); Nitrate Urine Negative (Negative); Protein Urine Negative (Negative); Specific Grav Ur 1.003 (1.001-1.035); Urobilinogen Urine 0.2 mg/dL (<2.0); pH Urine 6.5 (5.0-9.0)
--- NOTE | 2024-11-11 20:47 | ECG_ITS ---
Test Date: 2024-11-11 20:53:17 Measurements Intervals [place]y Rate: 78 P: 52 MD: 149 QRS: 13 QRSD: 86 T: 31 QT: 350 QTc: 399 Interpretive Statements SINUS RHYTHM BASELINE ARTIFACT- I, AVL NORMAL ECG Compared to ECG 11/11/2024 17:52:08 No significant changes Electronically Signed On 11-12-2024 06:22:15 CDT by Oscar Simpson D.O.
--- NOTE | 2024-11-11 21:04 | PC.NURSE ---
MD Cavazos verbally states to cancel 3 hr troponin and EKG due to discharging pt at this time.
== END 2024-11-11 21:40 | disposition home or self-care (01) ==
PROVIDERS: Emergency Medicine; Emergency Provider Emergency Medicine; PCP Nurse Practitioner Family
DX: F41.9 Anxiety disorder, unspecified (principal); R42 Dizziness and giddiness
CPT/HCPCS: 36415; 70496; 70498; 71046; 80053; 81003; 83690; 84484; 85025; 85610; 85730; 93005; 99284; A9270; Q9967

== ENCOUNTER 2025-03-11 12:33 | Emergency (ER) | payer BC, SELFPAY ==
--- OUTSIDE RECORDS SUMMARY | 2000-06-30 10:00 | XMS_ITS | Continuity of Care Document ---
Author Organization [facility] Address [address] [facility] [address] [place] [address] Phone Care Team Providers Care Site Worker Name Role Phone Watson OD, Mani Unavailable Unavailable Advance Directives Directive Yes / No Effective Date File Name No Information Encounters Encounter Description Practice Location Reason(s) For Visit Diagnoses Date Provider Providers Copied on Encounter [facility], [address], [place], [place], [id number], [place] tel:[phone] [facility] No Information 6-200 1 Watson OD Mani. [address] , [address], [place], [address], [place]. tel:[phone] Family History Family Member Type Diagnosis Age At Onset No Information Payers Payer name Insurance type Covered republican ID Authoriza tion(s) No Information Social History Type Description Quantity Date Captured Comments Sex Male Smoking Status No Information Chief Complaint And Reason For Visit No Information Reason For Referral Reason For Referral No Information History Of Present Illness Encounter Date Complaint History Of Prese nt Illness No Information Functional Status Date Functional Assessmen t No Information Instructions Date Instruction Additional Infor mation No Information Assessments Type Assessment Date No Information Patient Care Teams Name Effective Dates (start - stop) Status Members No Information
--- NOTE | ~2025-03-11 | XR_ITS ---
EXAMINATION: XR chest 2V DATE: 03/11/2025 13:17 INDICATION: Chest pain TECHNIQUE: PA and lateral views of the chest were obtained. COMPARISON: Chest radiograph dated 11/21/2024 FINDINGS: Mild linear discoid atelectasis/scarring at the lateral left lower lung zone. No other airspace opacities, pulmonary edema, pleural effusion or pneumothorax. The cardiomediastinal silhouette is normal. Visualized bones and soft tissues are unremarkable. IMPRESSION: 1. Mild discoid atelectasis/scarring at the left lower lung zone. No other acute cardiopulmonary disease. Reviewed, dictated and finalized at location A. IMPRESSION: 1. Mild discoid atelectasis/scarring at the left lower lung zone. No other acut e cardiopulmonary disease.
--- NOTE | 2025-03-11 12:44 | ECG_ITS ---
Test Date: 2025-03-11 12:59:39 Measurements Intervals [place] Rate: 78 P: 52 [place]: 156 QRS: 16 QRSD: 88 T: 16 QT: 345 QTc: 393 Interpretive Statements SINUS RHYTHM NORMAL ECG Compared to ECG 11/11/2024 20:53:17 No significant changes Electronically Signed On 03-11-2025 13:14:13 CDT by Oscar Simpson D.O.
[2025-03-11 12:45] VITALS: BP 137/83; PULSE 86; RESP 14; TEMP 36.6; O2SAT 94
[2025-03-11 13:04] LABS: Hematocrit 46.3 % (42.0-52.0); Hemoglobin 14.9 g/dL (14.0-18.0); Immature Granulocyte Percent A 0.6 % (0-0.5); Lymphocytes Absolute Auto 2.42 K/mm3 (0.9-3.2); Mean Corpuscular HGB Conc 32.2 g/dl (32-36); Mean Corpuscular Hemoglobin 28.8 pg (26-34); Mean Corpuscular Volume 89.4 fl (80-100); Nucleated Red Blood Cells Absolute Auto 0.000 K/mm3 (0.0-0.012); Nucleated Red Blood Cells Perc 0.0 % (0.0-0.2); Platelet Count Result 349 k/mm3 (150-375); Red Blood Count 5.18 M/mm3 (4.6-6.20); White Blood Count 8.7 K/mm3 (4.5-10.0)
[2025-03-11] MEDS: ASPIRIN 81 MG CHEWABLE TABLET 324 MG PO (13:07)
[2025-03-11 13:17] LABS: INR 0.9; Prothrombin Time 12.2 Seconds (11.1-14.7)
--- OUTSIDE RECORDS SUMMARY | 2025-03-11 13:23 | XMS_ITS | Encounter Summary ---
Author Organization [facility] Address Critical access hospital[address] [place] [address] Care Team Providers Care Surgical Services Tech Name Role Phone Dayan Ordaz [facility] Primary Care Provider + Tori Sweet [facility] Primary Care Provider + Arsenio Nick MD Primary Care Provider [phone] Encounter Details Date Type Department Care Team (Late st Contact Info) Description 03/08/2021 Prep for Procedure [facility] [address] [place] [address] Chepe Do MD [address] [place] [address] [id number] Social History Tobacco Use Types Packs/Day Years Used Date Smoking Tobacco: Former Cigarettes 1.5 20 0 07/16/1998 - 07/16/2018 Smokeless Tobacco: Never Alcohol Use Standard Drinks/Week Comments Yes 0 (1 standard drink = 0.6 oz pur e alcohol) socially AUDIT-C Answer Date Recorded Frequency of Alcohol Consumption Never 09/21/2018 Average Number of Drinks Not on file 019 Frequency of Binge Drinking Not on file 09/03 PHQ-2 Answer Date Recorded PHQ-2 Score - If the patient scores above 3, please move on to questions 3-9 1 11/12/2020 Education Answer Date Recorded What is the highest level of school you have completed or the highest degree you have received? High school graduate 09/21/2018 Sex and Gender Information Value Date Recorded Sex Assigned at Male 09/21/2018 10:44 AM CDT Legal Sex Male 8:21 PM CDT Gender Identity Male 09/21/2018 10:44 AM CDT Sexual Orientation Straight 09/21/2018 10 :44 AM CDT COVID-19 Exposure Response Date Recorded In the last month, have you been in contact with someone who was confirmed or suspected to have Coronavirus / COVID-19? No / Unsure 02/26/2021 1:24 PM CDT documented as of this encounter Plan of Treatment Upcoming Encounters Date Type Department Care Team (Late st Contact Info) Description 04/15/2025 7:20 AM RED CROSS WORKER Office Visit [facility] Medical [facility] [address] [place] [address] [place] [address] [facility] [address] [place] [address] 05/05/2025 1:20 PM RED CROSS WORKER Office Visit [facility] [address] [facility], [address] [place] [phone] Blane Manuel MD [address] [place] [address] [place] [phone] documented as of this encounter Visit Diagnoses Diagnosis Preop testing- Primary Preoperative examination, unspecified documented in this encounter Additional Health Concerns Assessment Noted Time PHQ-9 Depression Total Score: 1 11/13/19 7:24 AM CDT documented as of this encounter Care Teams Surgical Services Tech Relationship Specialty Start Date End Date Dayan Ordaz FNP- PCP - General Nurse Practitioner Family 11/30/20 Tori Sweet [facility]- PCP - General Nurse Practitioner Family 03/24/2311/04 [place] [address] [address] PCP - General INTERNAL MEDICINE 12/02/24 documented as of this encounter
--- OUTSIDE RECORDS SUMMARY | 2025-03-11 13:23 | XMS_ITS | Clinical Summary ---
Author Organization [facility] Address [address] [place] [address] Care Team Providers Care Cycle Consultant Name Role Phone Arsenio Nick MD Primary Care Provider [phone] Allergies No known active allergies Medications fish oil (OMEGA-3 FATTY ACID) 1000 MG Cap capsule Take 1 capsule (1,000 mg total) by mouth daily. Active multi vitamin/minera ls (THERA-M ENHANCED) tablet Take 1 tablet by mouth daily. Active Garlic 1000 MG capsule Take 1,000 mg by mouth daily. Active meclizine (ANTIVERT) 12.5 MG tablet take 1 tablet by mouth three times daily as needed for dizziness 11/13/19 25 Active traZODone (DESYREL) 50 MG tabletIndicati ons:Anxiety associated with depression Take 1 tablet (50 mg total) by mouth nightly at bedtime. Start with 0.5 tab then 1 if needs to increase 30 tablet 2 01/15/20 25 025 Active Coenzyme Q10 10 MG capsule Take 10 mg by mouth daily. Active fluticasone propionate (FLONASE) 50 MCG/ACT nasal spray USE 2 SPRAY(S) IN EACH NOSTRIL TWICE DAILY FOR 3 DAYS THEN 2 ONCE DAILY 02/17/20 25 Active LYCOPENE OR Take by mouth Acti ve busPIRone (BUSPAR) 15 MG tabletIndicati ons:Anxiety Take 1 tablet by mouth twice daily 60 tablet 03/10/20 25 Active busPIRone (BUSPAR) 15 MG tabletIndicati ons:Anxiety Take 1 tablet (15 mg total) by mouth 2 (two) times daily. 60 tablet 01/11/20 25 025 Discontinued busPIRone (BUSPAR) 15 MG tabletIndicati ons:Anxiety TAKE 1 TABLET(15 MG) BY MOUTH TWICE DAILY 60 tablet 02/11/20 25 025 Discontinued busPIRone (BUSPAR) 15 MG tabletIndicati ons:Anxiety Take 1 tablet by mouth twice daily 60 tablet 02/13/20 25 025 Discontinued cephALEXin (KEFLEX) 500 MG capsuleIndicat ions:Wound, open, puncture Take 1 capsule (500 mg total) by mouth 2 (two) times daily for 10 days. 20 capsule 02/22/20 25 025 Active Problems Problem Noted Date Diagnosed Date Acute anxiety 02/21/2025 Vertigo 02/21/2025 Primary hypertension 01/14/2025 Assessment & Plan (01/14/2025 9:17 AM CDT): Currently on beets + garlic tablets. Recommend low-salt diet Tobacco dependence due to chewing tobacco 2024 Assessment & Plan (01/14/2025 9:17 AM CDT): 0.5 can/day- cutting down per the pt Anxiety associated with depression 01/14/2025 Assessment & Plan (01/14/2025 9:17 AM CDT): Has been use seen buspirone 10 mg in the morning and 15 mg in the evenings as needed and could not tolerate the sertraline prescribed before Still intermittent stress and anxiety and having issue with sleep To take buspirone 15 mg twice daily consistently and add 25 to 50 mg trazodone before bedtime as tolerable. Patient needs to adjust pressure in regards to CPAP as well Orders: traZODone (DESYREL) 50 MG tablet; Take 1 tablet (50 mg total) by mouth nightly at bedtime. Start with 0.5 tab then 1 if needs to increase Dyslipidemia 01/14/2025 Assessment & Plan (01/14/2025 9:17 AM CDT): Currently on fish oil caps + Co.Q 10 per the pt. Cut back on red meat products Elevated cortisol level 10/01/2024 Mixed hyperlipidemia 09/27/2024 Bilateral hearing loss, unspecified hearing loss type 09/27/2024 Terminal ileitis ([facility]) 06/15/2021 Overview (09/27/2024): Has FHx of UC in father, with colon CA. Hx of BRBPR 2 years ago s/p colonoscopy which only revealed internal hemorrhoids. Asymptomatic otherwise, and incidentally noted to have TI thickening on CT 12/2020 which was done for testicular pain to rule out underlying mass. Therefore saw [facility] GI physician and underwent C-scope 03/17/2021 [...] thickening on recent CT despite stopping NSAIDs. Crohn's disease involving terminal ileum (CMS/ [facility]) 05/24/2021 Overview (05/24/2021): Added automatically from request for surgery [id number] Assessment & Plan (01/14/2025 9:17 AM CDT): Not on Rx Awaiting FU colonoscopy Screening for colon cancer 03/03/2021 Overview (03/03/2021): Added automatically from request for surgery [id number] Family history of colon cancer 03/03/2021 Overview (03/03/2021): Added automatically from request for surgery [id number] SRINIVASAN (obstructive sleep apnea) 02/15/2021 Assessment & Plan (01/15/2025 3:26 PM CDT): Scheduled to see -appointment in May per the patient On ?autoPap 4-15 cm water Has a new machine > a month now BMI 31.0-31.9,adult 11/12/2020 Resolved Problems Problem Noted Date Diagnosed Date Resolved Date Overweight (BMI 25.0-29.9) 04/16/2021 0 09/28/2023 Ileitis 04/16/2021 09/28/[address] scan, colon 03/03/2021 04/2 10/2024 Overview (03/03/2021): Added automatically from request for surgery [id number] COVID-19 02/15/2021 09/28/2023 Midsternal chest pain 11/12/20202023 Snoring 11/12/2020 09/28/2023 Witnessed episode of apnea 11/12/2020 0 09/28/2023 Encounter for preventive health examination 02/22/2016 02/14/2020 Encounters Date Type Department Care Team Description 02/21/2025 10:40 AM CDT Office Visit [facility] Family & Internal Medicine [address] [address] Winnie Aldrich APRN Wound (Sore on L ankle, side of L foot is swollen ROM there is pain x 6 days) 02/21/2025 Travel 01/14/2025 8:20 AM CDT Office Visit [facility] Family & Internal Medicine [address] [address] Arsenio Nick MD New Patient (New patient establish care araceli pt) 01/14/2025 Travel 01/10/2025 Telephone [facility] Family & Internal Medicine [address] [address] Arsenio Nick MD Refill Request from Last 3 Months Immunizations Immunization Administration Dates Next Due COVID-19 Vaccine (Generic) 07/01/2021(De ferred: Patient Refused),11/12/2020(Deferred: Patient Refused) Dtp 02/13/1992, 0,02/21/1989,04/27/1987,01/23 Hepatitis B 09/05/1997,04/01/1997,02/25/1997 Hepatitis B Pediatric 09/05/1997,04/01/1997,02/04 Hib 02/13/1992,02/21/1989 Hib (Generic) 02/13/1992,02/21/1989 Influenza (Generic) 07/01/2021(Deferred: Patient Refused) MMR 02/13/1992,02/21/1989 Opv 02/13/1992,02/21/1989,04/27/1987 ,01/23/1987 Polio Opv (Generic) 02/13/1992,02/21/1989,1986,01/23/1987 Td 03/20/2003 Tdap (Adacel) 08/30/2020 Family History Medical History Relation Comments No Known Problems Brother Epilepsy Daughter Cancer Father colon Ulcerative Colitis Father No Known Problems Maternal Aunt Alcohol Abuse Maternal Grandfather Melanoma Maternal Grandmother Brain Aneurysm Maternal Uncle Stroke Maternal Uncle No Known Problems Mother No Known Problems Paternal Aunt Diabetes Paternal Grandfather amputation Paternal Grandfather Diabetes Paternal Grandmother No Known Problems Paternal Uncle No Known Problems Sister Relation Status Comments Brother Daughter Other Father Alive Maternal Aunt Maternal Grandfather Maternal Grandmother Alive Maternal Uncle Mother Alive Paternal Aunt Paternal Grandfather Paternal Grandmother Paternal Uncle Sister Social History Tobacco Use Types Packs/Day Years Used Date Smoking Tobacco: Former Cigarettes 1.5 20 0 07/16/1998 - 07/16/2018 Passive Smoke Exposure: Past Smokeless Tobacco: Current Chew Tobacco Cessation:Ready to Q uit: No; Counseling Given: Yes Comments:chews tobacco daily Alcohol Use Standard Drinks/Week Comments Yes 0 (1 standard drink = 0.6 oz pur e alcohol) 1-2 beers every 7 months AUDIT-C Answer Date Recorded Frequency of Alcohol Consumption Never 09/21/2018 Average Number of Drinks Not on file 019 Frequency of Binge Drinking Not on file 09/03 PHQ-2 Answer Date Recorded Patient Health Questionnaire-2 Score 0 09/27/2024 Education Answer Date Recorded What is the highest level of school you have completed or the highest degree you have received? High school graduate 09/21/2018 Sex and Gender Information Value Date Recorded Sex Assigned at Male 09/21/2018 10:44 AM CDT Legal Sex Male 8:21 PM CDT Gender Identity Male 09/21/2018 10:44 AM CDT Sexual Orientation Straight 09/21/2018 10 :44 AM CDT Last Filed Vital Signs Vital Sign Reading Time Taken Comments Blood Pressure 122/80 02/21/2025 10:20 AM CDT Pulse 64 02/21/2025 10:20 AM CDT Temperature 36.4 C (97.6 F) 02/21/2025 10:20 AM CDT Respiratory Rate 16 02/21/2025 10:2 0 AM CDT Oxygen Saturation 98% 02/21/2025 10: 20 AM CDT Inhaled Oxygen Concentration - - Weight 100.8 kg (222 lb 3.2 oz) 025 10:20 AM CDT Height 177.8 cm (5' 10) 02/21/2025 10: 20 AM CDT Body Mass Index 31.88 02/21/2025 10:20 AM CDT Plan of Treatment Upcoming Encounters Date Type Department Care Team (Late st Contact Info) Description 04/15/2025 7:20 AM DISCHARGE PLANNER Office Visit [facility] Family & Internal Medicine - [address] [address] [place] [address] [facility] [address] [place] [address] [id number] 05/05/2025 1:20 PM DISCHARGE PLANNER Office Visit [facility] Multispecialty Care - [address], [address] [place] [phone] Blane Manuel MD [address] [address] Health Maintenance Due Date Last Done Comments Hepatitis C 2004 Pneumococcal Vaccine: Pediatrics (0 to 5 Years) and At-Risk Patients (6 to 49 Years) (1 of 2 - PCV) 2005 HPV Vaccines (1 - 3-dose SCDM series) 2013 COVID-19 Vaccine (1 - season) 2025 Influenza Adult (#1) 2025 Annual Physical 09/27/2025 09/27/2024, 09/04, 04/16/2021 DTaP, Tdap and Td Vaccines (3 - Td or Tdap) 08/30/2030 08/30/2020, 03/20/2003, 02/13/1992, Additional history exists Hepatitis B Vaccines Completed 09/05/1997, 09/05/1997, 04/01/1997, Additional history exists PHQ-2 (Physician Reagan) Completed 09/27/2024 Meningococcal B Vaccine Aged Out No l onger eligible based on patient's age to complete this topic Meningococcal Vaccine Aged Out No ene ashly eligible based on patient's age to complete this topic RSV Immunizations Under 20 Months Aged Out No longer eligible based on patient's age to complete this topic Insurance [facility] Care Teams Cycle Consultant Relationship Specialty [place] [id number] [place] [address] PCP - General INTERNAL MEDICINE 12/02/24
--- OUTSIDE RECORDS SUMMARY | 2025-03-11 13:23 | XMS_ITS | Encounter Summary ---
Author Organization [facility] Address [facility] [place] [address] Care Team Providers Care Manager Shop Name Role Phone Kee Tori Dos Santos [facility] Primary Care Provider + Arsenio Nick MD Primary Care Provider [phone] Encounter Details Date Type Department Care Team (Late st Contact Info) Description 11/25/2024 MyChart Message Enc [facility] Family & Internal Medicine [facility] [address] [place] [address] [place] [address] [address] Scheduled appointment. Social History Tobacco Use Types Packs/Day Years Used Date Smoking Tobacco: Former Cigarettes 1.5 20 0 07/16/1998 - 07/16/2018 Smokeless Tobacco: Current Chew Comments:chews tobacco daily Alcohol Use Standard Drinks/Week [...] Orientation Straight 09/21/2018 10 :44 AM CDT documented as of this encounter Plan of Treatment Upcoming Encounters Date Type Department Care Team (Late st Contact Info) Description 04/15/2025 7:20 AM OVERHEAD DISTRIBUTION ENGINEER Office Visit [facility] Family & Internal Medicine - [place] [address] [place] [address] [place] [address] [facility] [address] [place] [id number] 05/05/2025 1:20 PM OVERHEAD DISTRIBUTION ENGINEER Office Visit [facility] Multispecialty Care - [facility] [address] [facility] [place] [address] Blane Manuel MD [address] [facility] [address] [place] [address] documented as of this encounter Visit Diagnoses Not on filedocumented in this encounter Additional Health Concerns Assessment Noted Time PHQ-9 Depression Total Score: 3 09/28/19 7:53 AM CDT documented as of this encounter Care Teams Manager Shop Relationship Specialty Start Date End Date Tori Sweet, FEEDER SWITCHBOARD OPERATOR- PCP - General Nurse Practitioner Family 03/24/2311/04 [place] [address] [facility] [address] [place] [address] PCP - General INTERNAL MEDICINE 12/02/24 documented as of this encounter
--- OUTSIDE RECORDS SUMMARY | 2025-03-11 13:23 | XMS_ITS | Clinical Summary ---
Author Organization [facility] Address [address] [place] [phone] Care Team Providers Care Casino Cashier Name Role Phone Tori Sweet Gaby PLUMBING WAREHOUSE HELPER Unavailable [phone] Arsenio Nick MD Primary Care Provider [phone] Allergies No known active allergies Medications clindamycin (CLEOCIN T) 1 % lotion 1 Active ketoconazole (NIZORAL) 2 % shampoo 1 Active Lialda 1.2 gram EC tablet 1 Active budesonide EC (ENTOCORT EC) 3 mg 24 hr capsule Take 3 capsules (9 mg total) by mouth every morning for 14 days, THEN 2 capsules (6 mg total) every morning for 14 days, THEN 1 capsule (3 mg total) every morning for 14 days. 84 capsule 2 Active Additional Information Patient not taking.Reported on 01/27/2025 meclizine (ANTIVERT) 12.5 mg tablet Take 1 tablet (12.5 mg total) by mouth 3 (three) times a day as needed for dizziness 5 Active hydrOXYzine (ATARAX) 25 mg tablet Take 1 tablet (25 mg total) by mouth 3 (three) times a day as needed Active busPIRone (BUSPAR) 15 mg tablet Take 1 tablet (15 mg total) by mouth 2 (two) times a day 5 Active coenzyme Q10 10 mg capsule Take 1 capsule (10 mg total) by mouth daily Active folic acid 20 mg capsule Take by mouth Activ e [id number] lic-vit K-lycop 400-20-300 mcg tablet Take by mouth Active omega-3 fatty acids-fish oil 300-1,000 mg capsule Take 2 capsules (2 g total) by mouth daily Active traZODone (DESYREL) 50 mg tablet Take 1 tablet (50 mg total) by mouth daily 04/14/20 25 Active Hospital, Clinic, or Other Facility Administered Medication Ordered Dose Route Frequency Start Date End Date Status perflutren protein-a (OPTISON) 3 mL in sodium chloride 0.9% 8 mL syringe 1 - 8 mL IV Once in imaging 01/27/2025 Active Active Problems Problem Noted Date Diagnosed Date Ileitis, 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 Hx of BRBPR 2 years ago s/p colonoscopy which only revealed internal hemorrhoids. Asymptomatic otherwise, and incidentally noted to have TI thickening on CT 12/2020 which was done for testicular pain to rule out underlying mass. Therefore saw [facility] and underwent C-scope 03/17/2021 TI [...] NSAIDs. Assessment & Plan (06/15/2021 1:23 PM DRAFTING SUPERVISOR): - Labs today including CBC, CMP, CRP, ESR, iron studies, vitamin D/B12 and pre-biologic labs - Stop 5-ASA - Continue to avoid NSAIDs completely - Will schedule MRE, and consider starting Budesonide (Entocort) 9 mg daily based on results, with follow up ileocolonoscopy + biopsies in a few months - RTC in 3 months Encounters Date Type Department Care Team Description 02/05/2025 9:15 AM CDT Ancillary Procedure [address] [place] [id number] Abnormal EKG 01/27/2025 3:15 PM CDT Office Visit [facility] Medicine Cardiology [address] [place] [address] Medical Office Building [address] [place] [address] Max Cannon MD PhD Abnormal EKG (Primary Dx) 01/27/2025 2:00 PM CDT Ancillary Procedure [address] [place] [address] Chest pain, unspecified type; Dizziness; Other fatigue from Last 3 Months Family History Medical History Relation Name Comments Colon cancer Father Ulcerative colitis Father Relation Name Status Comments Father Social History Tobacco Use Types Packs/Day Years Used Date Smoking Tobacco: Former Cigarettes Q uit: 06/15/2018 Smokeless Tobacco: Never Tobacco Cessation:Counseling Given: Not Answered Sex and Gender Information Value Date Recorded Sex Assigned at Not on file Legal Sex Male 1:57 PM CDT Gender Identity Male 06/15/2021 7:44 AM DRAFTING SUPERVISOR Sexual Orientation Straight 06/15/2021 7: 44 AM DRAFTING SUPERVISOR Obstetrics History Last Filed Vital Signs Vital Sign Reading Time Taken Comments Blood Pressure 130/82 01/27/2025 2:32 PM CDT Pulse 72 01/27/2025 2:32 PM CDT Temperature 36.7 C (98.1 F) 06/15/2021 9:44 AM DRAFTING SUPERVISOR Respiratory Rate - - Oxygen Saturation 96% 01/27/2025 2:32 PM CDT Inhaled Oxygen Concentration - - Weight 100.2 kg (221 lb) 01/27/2025 2:32 PM CDT Height 175.3 cm (5' 9) 01/27/2025 2:32 PM CDT Body Mass Index 32.64 01/27/2025 2:32 PM CDT Plan of Treatment Health Maintenance Due Date Last Done Comments Depression Screening 1985 Hepatitis C Screening 1985 Varicella Vaccines (1 of 2 - 13+ 2-dose series) 1999 Regular Well Visit/Exam 18-64 2004 HPV Vaccines (1 - 3-dose SCDM series) 2013 Influenza Vaccine (#1) 2025 DTaP/Tdap/Td Vaccine (7 - Td or Tdap) 08/30/2030 08/30/2020, 03/20/2003, 02/13/1992, Additional history exists Hepatitis B Screening Completed 09/05/1997 , 04/01/1997, 02/25/1997 Pneumococcal vaccine <65 Aged Out No longer eligible based on patient's age to complete this topic Procedures Procedure Name Priority Date/Time Associated Diagnosis Comments STRESS TEST ONLY TREADMILL Routine 02/05/2025 9:20 AM CDT Abnormal EKG TRANSTHORACIC ECHO (TTE) COMPLETE W DOPPLER/CF WO CONTRAST Routine 01/27/2025 2:06 PM CDT Chest pain, unspecified type Dizziness Other fatigue from Last 3 Months Results * Stress Treadmill Test (02/05/2025 9:20 AM CDT) Anatomical Region Laterality Modality Electrocardiogra phy 02/05/2025 9:15 AM CDT Narrative 02/05/2025 10:26 AM CDT [facility] Cardiac Diagnostic Lab [address], [address] [place] [address] EXERCISE STRESS Patient Name: GUILLE PADILLA J : 1985 (39y 6m) Sex: M Study Date: 02/05/2025 09:15:00 AM Ht(Inch): 69 Wt(Lb): 217 BSA: 2.19 Tech: Babs La RN, MSN Location: [facility] Order Provider: MAX CANNON Heart Rate: 63 BMI: 32.04 BP: 123/76 Ref Provider: MAX CANNON PROCEDURES: Stress Report: Cardiovascular Treadmill Stress Exam. Protocol: Bello. INDICATIONS: R94.31 Abnormal electrocardiogram (ECG) (EKG). FINDINGS: Performed By: Babs Ross, RN,MSN. Supervising Physician: Dr. Max Cannon. Cardiac History: Cardiac Risk Factors: Elevated Cholesterol and former Smoker. Pre-test Chest Pain: No Chest Pain. Physical Exam: Allergies: NKA. Cardiac Medications: none. Procedure Data: Exercise Time: 10:41 HR 166 bpm Peak HR: 166 bpm Predicted Maximal HR: 182 bpm Percent Max Predicted HR Achieved: 91 % 85% of MPHR: 154.7 bpm Peak BP: 140/80 mmHg Max Stage: 4 METS Achieved: 13.40 Baseline ECG: Resting HR: 63 bpm Baseline BP: 123/76 mmHg Rhythm: Sinus. Chest Pain: No chest pain. Heart Rate Response: Heart rate response is appropriate. Blood Pressure Response: Blood pressure response is appropriate. Reason For Termination: bilateral calf pain. Cardiac Symptoms With Stress: Symptoms with stress were None. Exercise Performance: Exercise performance was good. ECG Abnormalities During/After Stress: No ECG abnormalities during or after stress. EXERCISE: TIME (min) SPEED (mph) GRADE Stage HR (bpm) BP (mmHg) Peak HR (bpm) Standing Baseline 70 110/70 Supine Baseline 63 123/76 Walking 2 1.7 10 1 101 116/70 Walking 5 2.5 12 2 115 120/70 Walking 8 3.4 14 3 137 134/70 Walking 10 4.2 16 4 166 140/80 RECOVERY: TIME (min) HR (bpm) BP (mmHg) Recovery 2 108 161/78 Recovery 4 99 156/73 Recovery 6 93 141/68 CONCLUSIONS: 1. Exercise performance was good. 2. Negative ECG evidence of ischemia during a max stress test. ATTESTATION: I have personally reviewed and interpreted this study without fellow or resident. Electronically Signed By: Max Cannon M.D. 02/05/2025 10:05:55 AM CDT Electronically Signed By: Max Cannon M.D. 02/05/2025 10:05:55 AM CDT Procedure Note Max Cannon MD PhD - 02/05/2025 [facility] Cardiac Diagnostic Lab [address] [place] [address] EXERCISE STRESS Patient Name: GUILLE PADILLA J : 1985 (39y 6m) Sex: M Study Date: 02/05/2025 09:15:00 AM Ht(Inch): 69 Wt(Lb): 217 BSA: 2.19 Tech: Babs La RN, MSN Location: [facility] Order Provider: MAX CANNON Heart Rate: 63 BMI: 32.04 BP: 123/76 Ref Provider: MAX CANNON PROCEDURES: Stress Report: Cardiovascular Treadmill Stress Exam. Protocol: Bello. INDICATIONS: R94.31 Abnormal electrocardiogram (ECG) (EKG). FINDINGS: Performed By: Babs Ross RN,MSN. Supervising Physician: Dr. Max Cannon. Cardiac History: Cardiac Risk Factors: Elevated Cholesterol and formerSmoker. Pre-test Chest Pain: No Chest Pain. Physical Exam: Allergies: NKA. Cardiac Medications: none. Procedure Data: Exercise Time: 10:41 HR 166 bpm Peak HR: 166 bpm Predicted Maximal HR: 182 bpm Percent Max Predicted HR Achieved: 91 % 85% of MPHR: 154.7 bpm Peak BP: 140/80 mmHg Max Stage: 4 METS Achieved: 13.40 Baseline ECG: Resting HR: 63 bpm Baseline BP: 123/76 mmHg Rhythm: Sinus. Chest Pain: No chest pain. Heart Rate Response: Heart rate response is appropriate. Blood Pressure Response: Blood pressure response is appropriate. Reason For Termination: bilateral calf pain. Cardiac Symptoms With Stress: Symptoms with stress were None. Exercise Performance: Exercise performance was good. ECG Abnormalities During/After Stress: No ECG abnormalities during or after stress. EXERCISE: TIME (min) SPEED (mph) GRADE Stage HR (bpm) BP (mmHg) Peak HR (bpm) Standing Baseline 70 110/70 Supine Baseline 63 123/76 Walking 2 1.7 10 1 101 116/70 Walking 5 2.5 12 2 115 120/70 Walking 8 3.4 14 3 137 134/70 Walking 10 4.2 16 4 166 140/80 RECOVERY: TIME (min) HR (bpm) BP (mmHg) Recovery 2 108 161/78 Recovery 4 99 156/73 Recovery 6 93 141/68 CONCLUSIONS: 1. Exercise performance was good. 2. Negative ECG evidence of ischemia during a max stress test. ATTESTATION: I have personally reviewed and interpreted this study without fellow orresident. Electronically Signed By: Max Cannon M.D. 02/05/2025 10:05:55 AM CDT Electronically Signed By: Max Cannon M.D. 02/05/2025 10:05:55 AM CDT us Max Cannon MD PhD CV STRESS PROCEDURES Final Resul t * TRANSTHORACIC ECHO (TTE) COMPLETE W DOPPLER/CF WO CONTRAST (01/27/2025 2:06 PM CDT) EF Mod BP 61 % CONS SCIMAGE Anatomical Region Laterality Modality Ultrasound 01/27/2025 1:41 PM CDT Narrative 01/27/2025 3:08 PM CDT [facility] Cardiac Diagnostic Lab [address], [address] [place] [address] Transthoracic Echocardiographic Report Patient Name: GUILLE PADILLA J : 1985 (39y 6m) Sex: M Study Date: 01/27/2025 01:41:33 PM Ht(Inch): 69 Wt(Lb): 210.1 BSA: 2.15 Tire Repairer: Bhargavi Zazueta, [facility], [facility] Location: [facility] Order Provider: MAX CANNON Heart Rate: 76 BMI: 31.02 Ref Provider: MAX CANNON Fellow: Juan Francisco Benavides MD PROCEDURES: Echocardiographic Report: Transthoracic complete echo, 2D, spectral and tissue Doppler, color flow Doppler, M-mode. Additional Procedures: Myocardial strain imaging was performed. INDICATIONS: R07.9 Chest pain, unspecified, R42 Dizziness and giddiness, and R53.83 Other fatigue. CONCLUSIONS: 1. Normal left ventricular size based on volume index. Concentric LV remodeling. Normal left ventricular systolic function. The Ejection Fraction (Love's) is measured at 61 %. Normal diastolic function. The average global longitudinal strain is normal. 2. There is no significant valvular heart disease. COMPARISONS: No previous study available for comparison. ATTESTATION: I have personally reviewed this study with a fellow in a teaching setting and attest to the findings and conclusions. Fellow that participated in the exam is Juan Francisco Benavides MD. DISCLAIMER: The study images and the final report will be retained in the patient chart by the Echo Laboratory for the legally required time period. This chart constitutes the legal record of any testing performed. FINDINGS: Study Quality: Good. Left Ventricle: Normal left ventricular size based on volume index. Concentric LV remodeling. Normal left ventricular systolic function. The Ejection Fraction (Love's) is measured at 61 %. Normal diastolic function. The average global longitudinal strain is normal. The LV global strain is: -20.6 %. Right Ventricle: Normal right ventricular size. Normal right ventricular systolic function. Left Atrium: The left atrium is not well visualized due to poor acoustic windows. Right Atrium: The right atrium is normal in size. Atrial Septum: Normal interatrial septum. Mitral Valve: Normal mitral valve structure. No mitral regurgitation. No stenosis present. Aortic Valve: Normal trileaflet aortic valve. No aortic regurgitation. No aortic valve stenosis. Tricuspid Valve: Normal tricuspid valve structure. Trace tricuspid regurgitation. No tricuspid valve stenosis. Pulmonic Valve: Normal pulmonic valve structure. No pulmonic regurgitation. No pulmonic valve stenosis present. Pericardium: Physiologic pericardial effusion. Aorta: Normal aortic root size when indexed. IVC: IVC is normal in size. The IVC was <2.1 cm and collapsibility >50%. (est. RA pressure 0-5 mmHg). The estimated RA pressure is 3 mmHg. PASP: The estimated pulmonary artery systolic pressure is 23.0 mmHg. PASP may be underestimated due to very faint TR jet. Rhythm: Normal Sinus rhythm was seen during the study. MEASUREMENTS: 2D/MM Value Range Doppler Value Range LVIDd 2D 4.85 cm [ 4.20 - 5.80 ] AV Peak Estrada 1.5 m/s [ 1.0 - 1.7 ] LVIDs 2D 3.09 cm [ 2.50 - 4.00 ] AV Peak PG 9.00 mmHg IVSd 2D 1.17 cm [ 0.60 - 1.00 ] AV Mean PG 5 mmHg LVPWd 2D 1.10 cm [ 0.60 - 1.00 ] AV VTI 30.1 cm LV Thickness Ratio 1.1 LVOT Peak Estrada 1.2 m/s [ 0.7 - 1.1 ] LV FS 2D 36.33 % [ 25.00 - 43.00 ] LVOT Peak PG 6.05 mmHg LV Mass 2D 209.64 g LVOT Mean PG 3 mmHg LV Mass Index 2D 97.33 g/m2 LVOT VTI 22.8 cm RWT 0.45 LVOT Diam 2.14 cm EDV Mod BP 119.34 ml [ 62.00 - 150.00 ] BERTIN VTI 2.72 cm2 LV EDV Index 55.41 ml/m2 LVOT/AV VTI 0.76 - Dimensionless index (DVI) ESV Mod BP 46.40 ml [ 21.00 - 61.00 ] MV E Peak Estrada 0.7 m/s [ 0.6 - 1.3 ] EF Mod BP 61 % [ 52 - 72 ] MV A Peak Estrada 0.6 m/s [ 1.0 - 1.2 ] LV GLS -20.6 % [ -25.0 - -18.0 ] MV E/A 1.3 ratio [ 0.8 - 1.5 ] LA Length 4C 5.74 cm MV Decel Time 213.20 msec [ 104.00 - 258.00 ] RV Base Dimen 2D 4.0 cm [ 2.5 - 4.2 ] Med E` Estrada 10.7 cm/sec [ 8.0 - 25.0 ] TAPSE 2.40 cm [ 1.71 - 5.00 ] Lat E` Estrada 12.3 cm/sec [ 10.0 - 25.0 ] RA Volume 49.44 ml Average E/E` 6.09 RA Volume Index 22.95 ml/m2 RV S` 13.67 cm/sec IVC Diam 2.09 cm TR Peak Estrada 2.2 m/s [ 1.0 - 2.8 ] IVC Collapse 69 % TR Peak PG 20.0 mmHg AoR Diam 2D 3.08 cm [ 3.10 - 3.70 ] RA Pressure 3 mmHg Ao Root Index 1.43 cm/m2 [ 1.00 - 2.00 ] RVSP 23.00 mmHg PV Peak Estrada 1.2 m/s [ 0.4 - 0.8 ] PV Peak PG 5.76 mmHg Electronically Signed By: Tiana Llanos MD 01/27/2025 3:07:26 PM CDT CC: Max Cannon M.D. Procedure Note De Tiana Zambrano MD - 01/27/2025 [facility] Cardiac Diagnostic Lab [address] , [address] [place] [address] Transthoracic Echocardiographic Report Patient Name: GUILLE PADILLA J : 1985 (39y 6m) Sex: M Study Date: 01/27/2025 01:41:33 PM Ht(Inch): 69 Wt(Lb): 210.1 BSA: 2.15 Tire Repairer: Bhargavi Zazueta RDCS, [facility] Location: [facility] Order Provider:MAX CANNON Heart Rate: 76 BMI: 31.02 Ref Provider: MAX CANNON Fellow: Juan Francisco Benavides MD PROCEDURES: Echocardiographic Report: Transthoracic complete echo, 2D, spectral andtissue Doppler, color flow Doppler, M-mode. Additional Procedures: Myocardial strain imaging was performed. INDICATIONS: R07.9 Chest pain, unspecified, R42 Dizziness and giddiness, and R53.83Other fatigue. CONCLUSIONS: 1. Normal left ventricular size based on volume index. Concentric LVremodeling. Normal left ventricular systolic function. The Ejection Fraction (Love's) ismeasured at 61 %. Normal diastolic function. The average global longitudinal strain isnormal. 2. There is no significant valvular heart disease. COMPARISONS: No previous study available for comparison. ATTESTATION: I have personally reviewed this study with a fellow in a teaching settingand attest to the findings and conclusions. Fellow that participated in the exam is Juan Francisco Benavides MD. DISCLAIMER: The study images and the final report will be retained in the patientchart by the Echo Laboratory for the legally required time period. This chart constitutesthe legal record of any testing performed. FINDINGS: Study Quality: Good. Left Ventricle: Normal left ventricular size based on volume index.Concentric LV remodeling. Normal left ventricular systolic function. The EjectionFraction (Love's) is measured at 61 %. Normal diastolic function. The average globallongitudinal strain is normal. The LV global strain is: -20.6 %. Right Ventricle: Normal right ventricular size. Normal right ventricularsystolic function. Left Atrium: The left atrium is not well visualized due to poor acousticwindows. Right Atrium: The right atrium is normal in size. Atrial Septum: Normal interatrial septum. Mitral Valve: Normal mitral valve structure. No mitral regurgitation. Nostenosis present. Aortic Valve: Normal trileaflet aortic valve. No aortic regurgitation. Noaortic valve stenosis. Tricuspid Valve: Normal tricuspid valve structure. Trace tricuspidregurgitation. No tricuspid valve stenosis. Pulmonic Valve: Normal pulmonic valve structure. No pulmonicregurgitation. No pulmonic valve stenosis present. Pericardium: Physiologic pericardial effusion. Aorta: Normal aortic root size when indexed. IVC: IVC is normal in size. The IVC was <2.1 cm and collapsibility >50%.(est. RA pressure 0-5 mmHg). The estimated RA pressure is 3 mmHg. PASP: The estimated pulmonary artery systolic pressure is 23.0 mmHg. PASPmay be underestimated due to very faint TR jet. Rhythm: Normal Sinus rhythm was seen during the study. MEASUREMENTS: 2D/MM Value Range DopplerValue Range LVIDd 2D 4.85 cm [ 4.20 - 5.80 ] AV Peak Vel1.5 m/s [ 1.0 - 1.7 ] LVIDs 2D 3.09 cm [ 2.50 - 4.00 ] AV Peak PG9.00 mmHg IVSd 2D 1.17 cm [ 0.60 - 1.00 ] AV Mean PG5 mmHg LVPWd 2D 1.10 cm [ 0.60 - 1.00 ] AV VTI30.1 cm LV Thickness Ratio 1.1 LVOT Peak Vel1.2 m/s [ 0.7 - 1.1 ] LV FS 2D 36.33 % [ 25.00 - 43.00 ] LVOT Peak PG6.05 mmHg LV Mass 2D 209.64 g LVOT Mean PG3 mmHg LV Mass Index 2D 97.33 g/m2 LVOT VTI22.8 cm RWT 0.45 LVOT Diam2.14 cm EDV Mod BP 119.34 ml [ 62.00 - 150.00 ] BERTIN VTI2.72 cm2 LV EDV Index 55.41 ml/m2 LVOT/AV VTI0.76 - Dimensionless index (DVI) ESV Mod BP 46.40 ml [ 21.00 - 61.00 ] MV E Peak Vel0.7 m/s [ 0.6 - 1.3 ] EF Mod BP 61 % [ 52 - 72 ] MV A Peak Vel0.6 m/s [ 1.0 - 1.2 ] LV GLS -20.6 % [ -25.0 - -18.0 ] MV E/A1.3 ratio [ 0.8 - 1.5 ] LA Length 4C 5.74 cm MV Decel Anmd761.20 msec [ 104.00 - 258.00 ] RV Base Dimen 2D 4.0 cm [ 2.5 - 4.2 ] Med E` Vel10.7 cm/sec [ 8.0 - 25.0 ] TAPSE 2.40 cm [ 1.71 - 5.00 ] Lat E` Vel12.3 cm/sec [ 10.0 - 25.0 ] RA Volume 49.44 ml Average E/E`6.09 RA Volume Index 22.95 ml/m2 RV S`13.67 cm/sec IVC Diam 2.09 cm TR Peak Vel2.2 m/s [ 1.0 - 2.8 ] IVC Collapse 69 % TR Peak PG20.0 mmHg AoR Diam 2D 3.08 cm [ 3.10 - 3.70 ] RA Pressure3 mmHg Ao Root Index 1.43 cm/m2 [ 1.00 - 2.00 ] RVSP23.00 mmHg PV Peak Estrada 1.2 m/s [ 0.4 - 0.8 ] PV Peak PG 5.76 mmHg Electronically Signed By: Tiana Llanos MD 01/27/2025 3:07:26 PM CDT CC: Max Cannon M.D. us Max Cannon MD PhD CV ECHO PROCEDURES Final Result from Last 3 Months Insurance ANTHEM ACCESS ANTHEM ACCESS Care Teams Casino Cashier Relationship Specialty [place] [address] [place] [address] PCP - General Internal Medicine 01/27/25 [place] [address] [address], [address] [place] [address] Family Medicine 09/30/24
--- OUTSIDE RECORDS SUMMARY | 2025-03-11 13:23 | XMS_ITS | Encounter Summary ---
Author Organization [facility] Address [address] [place] [address] Care Team Providers Care Continuous Wave Operator Name Role Phone Dayan Ordaz [facility] Primary Care Provider + Tori Sweet [facility] Primary Care Provider + Arsenio Nick MD Primary Care Provider [phone] Encounter Details Date Type Department Care Team (Late st Contact Info) Description 06/07/2021 MyChart Message Enc [facility] Family & Internal Medicine [id number] [place] [address] Dayan Ordaz [facility] [address] [place] [address] ABD+PEL W CON Social History Tobacco Use Types Packs/Day Years Used Date Smoking Tobacco: Former Cigarettes 1.5 20 0 07/16/1998 - 07/16/2018 Smokeless Tobacco: Current Chew Comments:chews tobacco at ti mes Alcohol Use Standard Drinks/Week Comments Yes 0 [...] 3, please move on to questions 3-9 0 05/21/2021 Education Answer Date Recorded What is the [...] have Coronavirus / COVID-19? No / Unsure 06/07/2021 1:54 PM ACID PURIFICATION EQUIPMENT OPERATOR documented as of this encounter Plan of Treatment Upcoming Encounters Date Type Department Care Team (Late st Contact Info) Description 04/15/2025 7:20 AM ACID PURIFICATION EQUIPMENT OPERATOR Office Visit [facility] Medical [facility] Family & Internal Medicine [address] [phone] Arsenio Nick MD [address] [place] [address] [place] [phone] 05/05/2025 1:20 PM ACID PURIFICATION EQUIPMENT OPERATOR Office Visit [facility] Multispecialty Care - [address], [address] [place] [phone] Blane Manuel MD [address] [place] [address] [place] [address] documented as of this encounter Visit Diagnoses Not on filedocumented in this encounter Additional Health Concerns Assessment Noted Time PHQ-9 Depression Total Score: 0 05/21/20 3:28 PM ACID PURIFICATION EQUIPMENT OPERATOR documented as of this encounter Care Teams Continuous Wave Operator Relationship Specialty Start Date End Date Dayan Ordaz FNP- PCP - General Nurse Practitioner Family 11/30/20 Tori Sweet INTERNIST MEDICAL DOCTOR MD- PCP - General Nurse Practitioner Family 03/24/2311/04 [place] [id number] [address] PCP - General INTERNAL MEDICINE 12/02/24 documented as of this encounter
--- OUTSIDE RECORDS SUMMARY | 2025-03-11 13:23 | XMS_ITS | Encounter Summary ---
Author Organization [facility] Address [facility] [place] [address] Care Team Providers Care Laborer Aquatic Life Name Role Phone Tori Sweet [facility] Primary Care Provider + Arsenio Nick MD Primary Care Provider [phone] Encounter Details Date Type Department Care Team (Late st Contact Info) Description 10/11/2024 [employer] Message [facility] [address] [place] [address] Graeme, [facility] Provider Heart monitor Social History Tobacco Use Types Packs/Day Years [...] st Contact Info) Description 04/15/2025 7:20 AM RAILROAD SIGNAL AND SWITCH OPERATOR Office Visit [facility] Family & Internal Medicine - [place] [address] [place] [address] [place] [address] [facility] [address] [place] [address] 05/05/2025 1:20 PM RAILROAD SIGNAL AND SWITCH OPERATOR Office Visit [facility] Multispecialty Care - [facility] [address] [facility], [address] [place] [address] Blane Manuel MD [address] [place] [address] [address] [place] [address] documented as of this encounter Visit Diagnoses Not on filedocumented in this encounter Additional Health Concerns Assessment Noted Time PHQ-9 Depression Total Score: 3 09/28/19 7:53 AM CDT documented as of this encounter Care Teams Laborer Aquatic Life Relationship Specialty Start Date End Date Tori Sweet, COTTON OPENER- PCP - General Nurse Practitioner Family 03/24/2311/04 [place] [address] [facility] [address] [place] [address] PCP - General INTERNAL MEDICINE 12/02/24 documented as of this encounter
[2025-03-11 13:25] LABS: Partial Thromboplastin Time 28.6 Seconds (22.3-36.8)
[2025-03-11 13:55] LABS: Alanine Aminotransferase 34 U/L (6-50); Albumin Level 4.0 g/dL (3.5-5.1); Alkaline Phosphatase 77 U/L (38-126); Anion Gap 5 mmol/L (4-12); Aspartate Amino Transferase 36 U/L (17-59); Bilirubin,Total 0.4 mg/dL (0.2-1.3); Blood Urea Nitrogen 13 mg/dL (9-20); Calcium 9.0 mg/dL (8.4-10.2); Carbon Dioxide 26 mmol/L (22-30); Chloride 104 mmol/L (98-107); Estimated CRCL calculation 101 ml/min; Estimated Glomerular Filt Rate > 60; Glucose 93 mg/dL (65-110); Lipase 140 U/L (23-300); Potassium 3.9 mmol/L (3.4-5.0); Sodium 135 mmol/L (137-145); Total Protein 7.0 g/dL (6.3-8.2)
--- OUTSIDE RECORDS SUMMARY | 2025-03-11 14:09 | XMS_ITS | Clinical Summary ---
Author Organization [facility] Address [address] [place] [address] Care Team Providers Care Security Architect Name Role Phone Tori Sweet Gaby ELECTRONIC DIE MAKER Unavailable [phone] Arsenio Nick MD Primary Care Provider [phone] Allergies No known active allergies Medications clindamycin [...] mg capsule Take by mouth Activ e poajnhfu-ktc-iu lic-vit K-lycop 400-20-300 mcg tablet Take by [...] to rule out underlying mass. Therefore saw [facility] GI physician and underwent C-scope 03/17/2021 [...] NSAIDs. Assessment & Plan (06/15/2021 1:23 PM OIL BURNER REPAIRER): - Labs today including CBC, CMP, CRP, [...] Description 02/05/2025 9:15 AM CDT Ancillary Procedure [address] [place] [address] Abnormal EKG 01/27/2025 3:15 PM CDT Office Visit [facility] Medicine Cardiology [address] [place] [address] Medical Office Building [address] [place] [address] Max Cannon MD PhD Abnormal EKG (Primary Dx) 01/27/2025 2:00 PM CDT Ancillary Procedure [address] [place] [address] Chest pain, unspecified type; Dizziness; Other fatigue [...] CDT Gender Identity Male 06/15/2021 7:44 AM OIL BURNER REPAIRER Sexual Orientation Straight 06/15/2021 7: 44 AM OIL BURNER REPAIRER Obstetrics History Last Filed Vital Signs Vital Sign Reading Time Taken Comments Blood Pressure 130/82 01/27/2025 2:32 PM CDT Pulse 72 01/27/2025 2:32 PM CDT Temperature 36.7 C (98.1 F) 06/15/2021 9:44 AM OIL BURNER REPAIRER Respiratory Rate - - Oxygen Saturation 96% [...] CDT Narrative 02/05/2025 10:26 AM CDT [facility] [address], [address] [place] [address] EXERCISE STRESS Patient Name: GUILLE PADILLA J : 1985 (39y 6m) Sex: M Study Date: 02/05/2025 09:15:00 AM Ht(Inch): 69 Wt(Lb): 217 BSA: 2.19 Tech: Babs La RN, MSN Location: [facility] Order Provider: MAX CANNON Heart Rate: [...] Max Cannon MD PhD - 02/05/2025 [facility] [address] , [address] [place] [address] EXERCISE STRESS Patient Name: GUILLE PADILLA J : 1985 (39y 6m) Sex: M Study Date: 02/05/2025 09:15:00 AM Ht(Inch): 69 Wt(Lb): 217 BSA: 2.19 Tech: Babs La RN, MSN Location: [facility] Order Provider: MAX CANNON Heart Rate: [...] CDT Narrative 01/27/2025 3:08 PM CDT [facility] [address], [address] [place] [address] Transthoracic Echocardiographic Report Patient Name: GUILLE PADILLA J : 1985 (39y 6m) Sex: M Study Date: 01/27/2025 01:41:33 PM Ht(Inch): 69 Wt(Lb): 210.1 BSA: 2.15 Store Deli Manager: Bhargavi Zazueta, [facility] [[email or web address]], [facility] Location: [facility] Order Provider: MAX CANNON Heart Rate: [...] De Tiana Zambrano MD - 01/27/2025 [facility] [address] , [address] [place] [address] Transthoracic Echocardiographic Report Patient Name: GUILLE PADILLA J : 1985 (39y 6m) Sex: M Study Date: 01/27/2025 01:41:33 PM Ht(Inch): 69 Wt(Lb): 210.1 BSA: 2.15 Store Deli Manager: Bhargavi Zazueta RDCS, [facility] Location: [facility] Order Provider:MXA CANNON Heart Rate: 76 BMI: 31.02 Ref [...] LA Length 4C 5.74 cm MV Decel Jafc922.20 msec [ 104.00 - 258.00 ] RV [...] Insurance ANTHEM ACCESS ANTHEM ACCESS Care Teams Security Architect Relationship Specialty [place] [address] [place] [address] PCP - General Internal Medicine 01/27/25 [place] [address] [address], [address] [place] [address] Family Medicine 09/30/24
--- OUTSIDE RECORDS SUMMARY | 2025-03-11 14:09 | XMS_ITS | Encounter Summary ---
Author Organization [facility] Address [facility] [place] [address] Care Team Providers Care Hardboard Coating Machine Operator Name Role Phone Kee Tori Dos Santos [facility] Primary Care Provider + Arsenio Nick MD Primary Care Provider [phone] Encounter Details Date Type Department Care Team (Late st Contact Info) Description 11/25/2024 MyChart Message Enc [facility] Medical [facility] Family & Internal Medicine [facility] [address] [place] [address] [place] [address] [address] Scheduled appointment. Social History Tobacco [...] st Contact Info) Description 04/15/2025 7:20 AM SENIOR BI DEVELOPER Office Visit [facility] Family & Internal Medicine - [place] [address] [place] [address] [place] [address] [facility] [address] [place] [address] 05/05/2025 1:20 PM SENIOR BI DEVELOPER Office Visit [facility] Multispecialty Care - [facility] [address] [facility] [address] [place] [address] Blane Manuel MD [address] [facility] [address] [place] [address] documented as of this encounter Visit Diagnoses Not on filedocumented in this encounter Additional Health Concerns Assessment Noted Time PHQ-9 Depression Total Score: 3 09/28/19 7:53 AM CDT documented as of this encounter Care Teams Hardboard Coating Machine Operator Relationship Specialty Start Date End Date Tori Sweet, AVID EDITOR- PCP - General Nurse Practitioner Family 03/24/2311/04 [place] [address] [facility] [address] [place] [address] PCP - General INTERNAL MEDICINE 12/02/24 documented as of this encounter
--- OUTSIDE RECORDS SUMMARY | 2025-03-11 14:09 | XMS_ITS | Clinical Summary ---
Author Organization [facility] Address [address] [place] [address] Care Team Providers Care Director Fundraising Name Role Phone Arsenio Nick MD Primary Care Provider [phone] Allergies No known active allergies Medications fish [...] unspecified hearing loss type 09/27/2024 Terminal ileitis ([facility]) 06/15/2021 Overview (09/27/2024): Has FHx of UC in father, with colon CA. Hx of BRBPR 2 years ago s/p colonoscopy which only revealed internal hemorrhoids. Asymptomatic otherwise, and incidentally noted to have TI thickening on CT 12/2020 which was done for testicular pain to rule out underlying mass. Therefore saw [facility] GI physician and underwent C-scope 03/17/2021 TI [...] Crohn's disease involving terminal ileum (CMS/ C [facility]) 05/24/2021 Overview (05/24/2021): Added automatically from request for surgery [id number] Assessment & Plan (01/14/2025 9:17 AM CDT): Not on Rx Awaiting FU colonoscopy Screening for colon cancer 03/03/2021 Overview (03/03/2021): Added automatically from request for surgery [id number] Family history of colon cancer 03/03/2021 Overview (03/03/2021): Added automatically from request for surgery [id number] SRINIVASAN (obstructive sleep apnea) 02/15/2021 Assessment & [...] (03/03/2021): Added automatically from request for surgery [id number] COVID-19 02/15/2021 09/28/2023 Midsternal chest pain 11/12/20202023 Snoring 11/12/2020 09/28/2023 Witnessed episode of apnea 11/12/2020 0 09/28/2023 Encounter for preventive health examination 02/22/2016 02/14/2020 Encounters Date Type Department Care Team Description 02/21/2025 10:40 AM CDT Office Visit [facility] Family & Internal Medicine [address] [address] Winnie Aldrich APRN Wound (Sore on L ankle, side of L foot is swollen ROM there is pain x 6 days) 02/21/2025 Travel 01/14/2025 8:20 AM CDT Office Visit [facility] Family & Internal Medicine [address] [address] Arsenio Nick MD New Patient (New patient establish care araceli pt) 01/14/2025 Travel 01/10/2025 Telephone [facility] Family & Internal Medicine [address] [address] Arsenio Nick MD Refill Request [...] st Contact Info) Description 04/15/2025 7:20 AM GENERAL DUTY NURSE Office Visit [facility] Medical Group Family & Internal Medicine - [address] [address] [place] [address] [facility] [address] [place] [phone] 05/05/2025 1:20 PM GENERAL DUTY NURSE Office Visit [facility] Multispecialty Care - [address], [address] [place] [address] Blane Manuel MD [address] [address] Health Maintenance Due Date Last Done Comments [...] 09/05/1997, 04/01/1997, Additional history exists PHQ-2 (Physician Hulbert) Completed 09/27/2024 Meningococcal B Vaccine Aged Out No l onger eligible based on patient's age to complete this topic Meningococcal Vaccine Aged Out No ene ashly eligible based on patient's age to complete this topic RSV Immunizations Under 20 Months Aged Out No longer eligible based on patient's age to complete this topic Insurance [facility] Care Teams Director Fundraising Relationship Specialty [place] [address] [place] [address] PCP - General INTERNAL MEDICINE 12/02/24
--- OUTSIDE RECORDS SUMMARY | 2025-03-11 14:09 | XMS_ITS | Encounter Summary ---
Author Organization [facility] Address [address] [place] [address] Care Team Providers Care Electrical Lineworker Name Role Phone Dayan Ordaz [facility] Primary Care Provider + Tori Sweet [facility] Primary Care Provider + Arsenio Nick MD Primary Care Provider [phone] Encounter Details Date Type Department Care Team (Late st Contact Info) Description 06/07/2021 MyChart Message Enc [facility] Medical Group Family & Internal Medicine [place] [phone] [place] [address] Dayan Ordaz [facility] [address] [place] [address] ABD+PEL W [...] COVID-19? No / Unsure 06/07/2021 1:54 PM HEALTHCARE NETWORK PRICING CONSULTANT documented as of this encounter Plan of Treatment Upcoming Encounters Date Type Department Care Team (Late st Contact Info) Description 04/15/2025 7:20 AM HEALTHCARE NETWORK PRICING CONSULTANT Office Visit [facility] Medical Group Family & Internal Medicine [address] [phone] Arsenio Nick MD [address] [place] [address] [place] [phone] 05/05/2025 1:20 PM HEALTHCARE NETWORK PRICING CONSULTANT Office Visit [facility] Multispecialty Care - [address], [address] [place] [address] Blane Manuel MD [address] [place] [address] [place] [address] documented as of this encounter Visit Diagnoses Not on filedocumented in this encounter Additional Health Concerns Assessment Noted Time PHQ-9 Depression Total Score: 0 05/21/20 3:28 PM HEALTHCARE NETWORK PRICING CONSULTANT documented as of this encounter Care Teams Electrical Lineworker Relationship Specialty Start Date End Date Dayan Ordaz FNP- PCP - General Nurse Practitioner Family 11/30/20 Tori Sweet HOMEOPATHIC DOCTOR- PCP - General Nurse Practitioner Family 03/24/2311/04 [place] [address] [address] PCP - General INTERNAL MEDICINE 12/02/24 documented as of this encounter
--- OUTSIDE RECORDS SUMMARY | 2025-03-11 14:09 | XMS_ITS | Encounter Summary ---
Author Organization [facility] Address [facility] [place] [address] Care Team Providers Care Rip/Mould Operator Name Role Phone Tori Sweet [facility] Primary Care Provider + Arsenio Nick MD Primary Care Provider [phone] Encounter Details Date Type Department Care Team (Late st Contact Info) Description 10/11/2024 Dataium Message [facility] [address] [place] [address] Graeme, [facility] Provider Heart monitor Social History Tobacco Use [...] st Contact Info) Description 04/15/2025 7:20 AM TAX EXPERT Office Visit [facility] Family & Internal Medicine - [place] [address] [place] [address] [place] [address] [facility] [address] [place] [address] 05/05/2025 1:20 PM TAX EXPERT Office Visit [facility] Multispecialty Care - [facility] [address] [facility], [address] [place] [address] Blane Manuel MD [address] [place] [address] [address] [place] [address] documented as of this encounter Visit Diagnoses Not on filedocumented in this encounter Additional Health Concerns Assessment Noted Time PHQ-9 Depression Total Score: 3 09/28/19 7:53 AM CDT documented as of this encounter Care Teams Rip/Mould Operator Relationship Specialty Start Date End Date Tori Sweet, E D TECH- PCP - General Nurse Practitioner Family 03/24/2311/04 [place] [address] [facility] [address] [place] [address] PCP - General INTERNAL MEDICINE 12/02/24 documented as of this encounter
--- OUTSIDE RECORDS SUMMARY | 2025-03-11 14:09 | XMS_ITS | Encounter Summary ---
Author Organization [facility] Address [facility] [place] [address] Care Team Providers Care Enamel Shader Name Role Phone Dayan Ordaz [facility] Primary Care Provider + Tori Sweet [facility] Primary Care Provider + Arsenio Nick MD Primary Care Provider [phone] Encounter Details Date Type Department Care Team (Late st Contact Info) Description 03/08/2021 Prep for Procedure [facility] [address] [place] [address] Chepe Do MD [address] [place] [phone] Social History Tobacco Use Types Packs/Day Years [...] st Contact Info) Description 04/15/2025 7:20 AM BLASTING ENTRY SPECIALIST Office Visit [facility] Medical [facility] Family & Internal Medicine [facility] [address] [place] [address] [place] [address] [facility] [address] [place] [address] 05/05/2025 1:20 PM BLASTING ENTRY SPECIALIST Office Visit [facility] Multispecialty Care - [facility] [address] [facility], [address] [place] [phone] Blane Manuel MD [address] [place] [address] [place] [address] documented as of this encounter Visit Diagnoses Diagnosis Preop testing- Primary Preoperative examination, unspecified documented in this encounter Additional Health Concerns Assessment Noted Time PHQ-9 Depression Total Score: 1 11/13/19 7:24 AM CDT documented as of this encounter Care Teams Enamel Shader Relationship Specialty Start Date End Date Dayan Ordaz FNP- PCP - General Nurse Practitioner Family 11/30/20 Tori Sweet [facility]- PCP - General Nurse Practitioner Family 03/24/2311/04 [place] [address] [address] PCP - General INTERNAL MEDICINE 12/02/24 documented as of this encounter
--- NOTE | 2025-03-11 14:10 | ED_ITS ---
HPI - Chest Pain General Chief Complaint: Chest Pain Stated Complaint: CP Time Seen by Provider: 03/11/25 12:39 Source: patient Mode of arrival: ambulatory Limitations: no limitations History of Present Illness HPI narrative: 39-year-old with a history of anxiety presents to the ER with a complains of right-sided chest pain radiating into the left side of his chest for last 3-4 days. Pain is constant in nature. He denies any shortness of breath. He has been taking his anti anxiety medication with no relief , he is concerned about his pain as it is lasting for more then 3 days. Pertinent past history: other (Anxiety) Onset (ago): day(s) (3) Timing of current episode: constant Pain location: right chest Pain radiation: other (left chest) Quality: aching Relieving factors: nothing Exacerbating factors: nothing Related Data Allergies Allergy/AdvReac Type Severity Reaction Status Date / Time No Known Allergies Allergy Verified 03/11/25 12:49 Review of Systems 2 Review of Systems: All systems reviewed & are unremarkable except as noted in HPI and below Constitutional: Constitutional: Reports no additional constitutional complaints Eyes: Eyes: Reports no additional eye complaints ENT: Reports system reviewed and no additional complaints, except as documented Cardiovascular: Cardiovascular: Reports as per HPI Respiratory: Respiratory: Reports no additional respiratory complaints Gastrointestinal: Gastrointestinal: Reports no additional gastrointestinal complaints Musculoskeletal: Musculoskeletal: Reports no additional musculoskeletal complaints Integumentary/Breasts: Skin/Breast: Reports system reviewed and no additional complaints, except [facility] Social History Social History Substance use type: does not use Gender identity (if verbalized by the patient): Male Course Course Emergency Course: Patient comfortably resting in no discomfort informed him about his lab work, chest x-ray findings. Recommended him to contact his primary doctor for dose adjustment of his anti anxiety medication . Pt states he has been having these symptoms since he had Covid 4 yrs ago . Vital Signs Vital signs: Vital Signs Temperature 36.6 C 03/11/25 12:45 Pulse Rate 86 03/11/25 12:45 Respiratory Rate 14 03/11/25 12:45 Blood Pressure 137/83 03/11/25 12:45 Pulse Oximetry 94 03/11/25 12:45 Oxygen Delivery Room Air 03/11/25 12:45 Temperature 36.6 C 03/11/25 12:45 Pulse Rate 86 03/11/25 12:45 Respiratory Rate 14 03/11/25 12:45 Blood Pressure 137/83 03/11/25 12:45 Pulse Oximetry 94 03/11/25 12:45 Oxygen Delivery Room Air 03/11/25 12:48 MDM - Chest Pain Differential Diagnosis Differential diagnosis: Likely pneumothorax, stable angina, costochondritis, chest pain and other (Anxiety) Medical Records Data Attestation: I reviewed the patient's medical records. Lab Data Attestation: I reviewed the patient's lab results. 03/11/25 12:51 03/11/25 13:32 Labs: Lab Results 03/11/25 03/11/25 Range/Units 12:51 13:32 WBC 8.7 (4.5-10.0) K/mm3 RBC 5.18 (4.6-6.20) M/mm3 Hgb 14.9 (14.0-18.0) g/dL Hct 46.3 (42.0-52.0) % MCV 89.4 (80-100) fl MCH 28.8 (26-34) pg MCHC 32.2 (32-36) g/dl RDW 13.0 (11.5-14.5) % Plt Count 349 (150-375) k/mm3 MPV 9.2 (7.4-10.4) fl Immature Gran % (Auto) 0.6 H (0-0.5) % Neut % (Auto) 61.2 (45.5-73.1) % Lymph % (Auto) 27.7 (18.3-44.2) % [place] % (Auto) 8.2 (2.6-8.5) % Eos % (Auto) 1.7 (0-4.4) % Baso % (Auto) 0.6 (0.2-1.2) % Lymph # (Auto) 2.42 (0.9-3.2) K/mm3 [place] # (Auto) 0.7 H (0.1-0.6) K/mm3 Eos # (Auto) 0.2 (0-0.3) K/mm3 Baso # (Auto) 0.1 (0.0-0.1) K/mm3 Abs Immat Gran (auto) 0.05 H (0.00-0.031) K/mm3 Absolute Neuts (auto) 5.4 (1.3-6.7) K/mm3 Absolute Nucleated RBC 0.000 (0.0-0.012) K/mm3 Nucleated RBC % 0.0 (0.0-0.2) % PT 12.2 (11.1-14.7) Seconds INR 0.9 APTT 28.6 (22.3-36.8) Seconds Sodium 135 L (137-145) mmol/L Potassium 3.9 (3.4-5.0) mmol/L Chloride 104 (98-107) mmol/L Carbon Dioxide 26 (22-30) mmol/L Anion Gap 5 (4-12) mmol/L BUN 13 (9-20) mg/dL Creatinine 1.02 (0.7-1.3) mg/dL Estim Creat Clear Calc 101 ml/min Estimated GFR > 60 (59 - ) Glucose 93 (65-110) mg/dL Calcium 9.0 (8.4-10.2) mg/dL Total Bilirubin 0.4 (0.2-1.3) mg/dL AST 36 (17-59) U/L ALT 34 (6-50) U/L Alkaline Phosphatase 77 (38-126) U/L Troponin I Pending Total Protein 7.0 (6.3-8.2) g/dL Albumin 4.0 (3.5-5.1) g/dL Lipase 140 (23-300) U/L Imaging Data Radiologist's impression: ITS Impressions Chest X-Ray 03/11/25 13:17 IMPRESSION: 1. Mild discoid atelectasis/scarring at the left lower lung zone. No other acute cardiopulmonary disease. ECG Data EKG #1: EKG Interpretation: normal rate (70), no ectopy, no ST changes and NL axis Discharge Plan Discharge Clinical Impression: Atypical chest pain Patient Disposition: Home Condition: Stable Instructions: Chest Pain (ED) Additional Instructions: continue home medications, follow with your pMD Patient Language: Scottish Prescriptions: New naproxen 500 mg tablet 500 mg PO BID PRN (Reason: pain) Qty: 14 0RF No Action meclizine 12.5 mg tablet 12.5 mg PO TID PRN (Reason: dizziness) Qty: 14 0RF Follow-up/Referrals: Suthan,Arsenio [Other] Time of Disposition: 14:25
[2025-03-11 14:15] LABS: Troponin I < 0.012 ng/mL (0.000-0.034)
[2025-03-11 14:40] VITALS: BP 145/72; PULSE 75; RESP 16; O2SAT 98
== END 2025-03-11 14:41 | disposition home or self-care (01) ==
PROVIDERS: Emergency Provider Family Medicine
DX: R07.89 Other chest pain (principal); F41.9 Anxiety disorder, unspecified; Z86.16 Personal history of COVID-19
CPT/HCPCS: 36415; 71046; 80053; 83690; 84484; 85025; 85610; 85730; 93005; 99284; A9270